=== PATIENT | female | born 2000 | race African-American/Black ===

== ENCOUNTER 2024-03-01 18:09 | Emergency (ER) | payer OTHER ==
[2024-03-01 19:00] LABS: Absolute Basophils 0.1 K/uL (0-0.5); Absolute Lymphocytes (CBC) 0.4 K/uL (0.7-4.9); Absolute Monocytes 0.1 K/uL (0.1-1.3); Absolute Neutrophil 14.3 K/uL (1.8-8.0); Basophils % 0.4 % (0-1.3); Hematocrit 38.7 % (36.0-45.0); Lymphocytes % 2.5 % (15.3-44.8); MCHC 30.9 g/dL (32.0-36.0); MCV 74.3 fL (80-100); Monocytes % 0.8 % (3.3-12.3); Neutrophils % 96.3 % (41.7-73.7); Platelets 352 thou/uL (152-406); RBC Red Blood Cell Count 5.21 M/uL (3.86-4.86); Red Cell Distribution Width 23.3 % (12.1-15.2)
[2024-03-01 19:01] LABS: White Blood Cell Scan OK (OK)
[2024-03-01 19:02] LABS: Anisocytosis 2+; Blood Morphology Comment NOTED (NOT SEEN); Platelet Estimate ADEQ
[2024-03-01 19:09] LABS: Specific Gravity 1.019 (1.005-1.030)
[2024-03-01 19:11] LABS: Specific Gravity 1.019 (1.005-1.030); Urine Bacteria <20 /HPF (<20); Urine Bilirubin NEGATIVE (Negative); Urine Blood Negative (Negative); Urine Clarity Turbid (Clear); Urine Color Light-Yellow (Yellow); Urine Glucose NEGATIVE (Negative); Urine Ketones 4+ (Over) (Negative); Urine Microscopic Reflex YN ORDER UMIC; Urine Mucus Slight /HPF (None Seen); Urine Nitrite NEGATIVE (Negative); Urine Protein 1+ (Negative); Urine RBC <5 /HPF (None Seen); Urine Urobilinogen Normal (Normal); Urine pH 7.5 (5.0-7.0)
[2024-03-01 19:15] LABS: Urine Culture Reflex Order REFLEXED
[2024-03-01] MEDS ORDERED: METOCLOPRAMIDE 10 MG/2mL INJ ONE ×2 (19:15→23:43)
[2024-03-01] MEDS ORDERED: MORPHINE 4 MG/ML SYR ONE ×2 (19:15→22:25)
[2024-03-01] MEDS ORDERED: NA CHLORIDE 0.9% 1,000 ML ONE (19:15)
[2024-03-01] MEDS ORDERED: NA CHLORIDE 0.9% 50 ML ONE ×2 (19:15→23:43)
[2024-03-01 19:32] LABS: Barbiturates NEGATIVE (NEGATIVE); Benzodiazepines NEGATIVE (NEGATIVE); Cocaine POSITIVE (NEGATIVE); METHAMPHETAM NEGATIVE (NEGATIVE); Methadone NEGATIVE (NEGATIVE); Opiates NEGATIVE (NEGATIVE); Phencyclidine NEGATIVE (NEGATIVE); THC Cannibis POSITIVE (NEGATIVE)
[2024-03-01 19:44] LABS: Albumin 4.6 g/dL (3.4-5.0); Anion Gap 11.8 mEq/L (5.0-15.0); Bilirubin Total 0.3 mg/dL (0.2-1.0); Globulin 4.4 g/dL (2.3-3.5); Potassium 3.8 mEq/L (3.5-5.1)
[2024-03-01] MEDS ORDERED: ONDANSETRON 4 MG/2 ML VIAL ONE ×2 (21:18→22:25)
--- NOTE | 2024-03-01 21:20 | RAD REPORT ---
EXAM DESCRIPTION: CT - Abdomen Pelvis W Contrast - 03/01/2024 9:02 pm CLINICAL HISTORY: Abdominal pain COMPARISON: none. TECHNIQUE: Computed axial tomography of the abdomen pelvis was obtained. 100 cc Isovue-300 was admin istered intravenously. Oral contrast was not requested which limits evaluation of bowel and appendix All CT scans are performed using dose optimization technique as appropriate and may include automated exposure control or mA/KV adjustment according to patient size. FINDINGS: A 6 millimeter low-density lesion right liver. Tiny low-density lesion left lobe of liver. These are too small to characterize by CT criteria but probably are benign. Follow up liver ultrasou nd in 3 months recommended for re-evaluation Spleen, pancreas, adrenals and kidneys unremarkable. No adnexal mass. Trace amount fluid within pelvis. Wall of the transverse colon and portion of the ascending colon appear mildly thickened. IMPRESSION: Wall of the transverse colon and portion of the ascending colon appear mildly thickened. This may indicate a mild colitis or incomplete distention
[2024-03-01] MEDS ORDERED: CIPROFLOXACIN HCL 500 MG TAB ONE (21:51)
[2024-03-01] MEDS ORDERED: METRONIDAZOLE 500mg IVPB 500 MG/100 ML BAG IV ONE (21:51)
--- NOTE | 2024-03-01 22:47 | EDPHYS ---
Physician Documentation [facility] Name: Elizabeth Gillis Age: 23 yrs Sex: Female : 2000 Arrival Date: 03/01/2024 Time: 18:09 Bed 7 Private MD: ED Physician Ramos Petersen HPI: 03/01 18:50 This 23 yrs old Black Female presents to ER via Wheelchair with complaints of Abdominal cp Pain, Nausea/Vomiting. 18:50 The patient presents with abdominal pain right lower quadrant. cp 18:50 Onset: The symptoms/episode began/occurred this afternoon. cp 18:50 Associated signs and symptoms: Pertinent positives: nausea and vomiting since last cp night, diarrhea, Pertinent negatives: blood in stools, constipation, fever, vomiting blood. The symptoms are described as constant. 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 - Infectious Disease History:: Denies. - Social history:: Smoking status: Patient reports the use of cigarette tobacco products, denies chronic smoking, but will smoke occasionally, Patient uses alcohol, occasionally. - Family history:: not pertinent. ROS: 18:55 Constitutional: Positive for poor PO intake, Negative for body aches, chills, fever, cp 18:55 Cardiovascular: Negative for chest pain, edema, palpitations, cp 18:55 Respiratory: Negative for cough, shortness of breath, wheezing, 18:55 Abdomen/GI: Positive for abdominal pain, nausea and vomiting, Negative for diarrhea, constipation, hematemesis, black/tarry stool, rectal bleeding, 18:55 : Negative for urinary symptoms, flank pain, 18:55 Neuro: Negative for altered mental status, dizziness, headache, syncope, 18:55 All other systems are negative, 03/02 02:36 Constitutional: Negative for fever, chills, and weight loss, positive abdominal pain , sp4 positive nausea vomiting All other systems are negative, Exam: 03/01 19:00 Constitutional: The patient appears in no acute distress, alert, awake, non-toxic, well cp developed, well nourished, 19:00 Head/Face: Normocephalic, atraumatic. cp 19:00 Eyes: Periorbital structures: appear normal, Conjunctiva: normal, no exudate, no injection, Sclera: no appreciated abnormality, Lids and lashes: appear normal, bilaterally, 19:00 ENT: External ear(s): are unremarkable, Nose: is normal, Mouth: Lips: moist, Oral mucosa: pink and intact, moist, Posterior pharynx: Airway: no evidence of obstruction, patent, 19:00 Chest/axilla: Inspection: normal, 19:00 Cardiovascular: Rate: normal, Rhythm: regular, 19:00 Respiratory: the patient does not display signs of respiratory distress, Respirations: normal, no use of accessory muscles, no retractions, labored breathing, is not present, Breath sounds: are clear throughout, no decreased breath sounds, no stridor, no wheezing, 19:00 Abdomen/GI: Inspection: abdomen appears normal, Bowel sounds: active, all quadrants, Palpation: soft, in all quadrants, moderate abdominal tenderness, in the right upper quadrant and left upper quadrant, rebound tenderness, is not appreciated, involuntary guarding, is not appreciated, 19:00 Back: pain, is absent, CVA tenderness, is absent, 19:00 Neuro: Orientation: to person, place \T\ time. Mentation: is normal, Motor: moves all fours, strength is normal, Sensation: no obvious gross deficits, Vital Signs: 18:24 Temp 97.2(TE); tm6 18:26 BP 161 / 91; Pulse 66; Resp 19; Pulse Ox 100% on R/A; Weight 63.5 kg; Height 5 ft. 6 tm6 in. ; Pain 8/10; 19:33 BP 146 / 90; Pulse 58; Resp 19; Pulse Ox 100% on R/A; kd3 21:20 BP 117 / 58; Pulse 82; Resp 19; Pulse Ox 100% on R/A; kd3 22:53 BP 144 / 85; Pulse 81; Resp 19; Pulse Ox 99% on R/A; kd3 03/02 00:07 BP 109 / 77; Pulse 84; Resp 19; Pulse Ox 98% on R/A; kd3 03/01 18:26 Body Mass Index 22.60 (63.50 kg, 167.64 cm) tm6 18:26 Pain Scale: Adult tm6 MDM: 03/01 18:25 Patient medically screened. cp 23:19 ED course: EXAM DESCRIPTION: CT - Abdomen Pelvis W Contrast - 03/01/2024 9:02 pm sp4 CLINICAL HISTORY: Abdominal pain COMPARISON: none. TECHNIQUE: Computed axial tomography of the abdomen pelvis was obtained. 100 cc Isovue-300 was administered intravenously. Oral contrast was not requested which limits evaluation of bowel and appendix All CT scans are performed using dose optimization technique as appropriate and may include automated exposure control or mA/KV adjustment according to patient size. FINDINGS: A 6 millimeter low-density lesion right liver. Tiny low-density lesion left lobe of liver. These are too small to characterize by CT criteria but probably are benign. Follow up liver ultrasound in 3 months recommended for re-evaluation Spleen, pancreas, adrenals and kidneys unremarkable. No adnexal mass. Trace amount fluid within pelvis. Wall of the transverse colon and portion of the ascending colon appear mildly thickened. IMPRESSION: Wall of the transverse colon and portion of the ascending colon appear mildly thickened. This may indicate a mild colitis or incomplete distention. 03/02 02:36 Differential diagnosis: Nonspecific abd pain, gastritis, viral gastroenteritis, sp4 gastroenteritis. Data reviewed: vital signs, nurses notes, lab test result(s), radiologic studies, CT scan. Consideration of Admission/Observation Escalation of care including admission/observation considered. 03/01 18:47 Order name: CBC with Diff; Complete Time: 19:57 cp 03/01 22:07 Interpretation: Normal except: WBC 14.90; RBC 5.21; MCV 74.3; MCH 23.0; MCHC 30.9; RDW cp 23.3; LEA% 96.3; LYM% 2.5; MN% 0.8; NEUT A 14.3; LYMA 0.4. 03/01 18:47 Order name: CMP; Complete Time: 19:57 cp 03/01 22:07 Interpretation: Normal except: GLUC 117; BUN 4; TP 9.0; GLOB 4.4; A/G 1.0. cp 03/01 18:47 Order name: Lipase; Complete Time: 19:57 cp 03/01 18:47 Order name: Test, Urine; Complete Time: 19:57 cp 03/01 18:47 Order name: Urinalysis w/ reflexes; Complete Time: 19:57 cp 03/01 22:08 Interpretation: Normal except: [facility] Turbid; UKET 4+ (Over); UPH 7.5; UPROT 1+; UESTR cp 250; UWBC 10-20. 03/01 19:02 Order name: UDS; Complete Time: 19:57 cp 03/01 19:57 Interpretation: Normal except: JYOTI POSITIVE; THC POSITIVE. 03/01 19:02 Order name: CBC Smear Scan; Complete Time: 19:57 EDMS 03/01 19:18 Order name: Urine Culture EDNJ 03/01 19:58 Order name: CT Abd/Pelvis - IV Contrast Only 03/01 18:47 Order name: IV Saline Lock; Complete Time: 18:47 cp 03/01 18:47 Order name: Labs collected and sent; Complete Time: 18:47 cp 03/01 21:40 Order name: PO challenge; Complete Time: 21:59 cp Administered Medications: 03/01 19:25 Drug: morphine IVP or IV 4 mg IVP once over 4 mins Route: IVP; Infused Over: 4 mins; [facility] Site: right antecubital; 19:25 Drug: metoCLOPramide IVP 10 mg IVP once; over 1 to 2 minutes Route: IVP; Site: right [facility] antecubital; 19:25 Drug: NS 0.9% IV 1000 ml IV at 1 bolus Per protocol Route: IV; Rate: 1 bolus; Site: [facility] right antecubital; 21:20 Drug: Ondansetron IVP 4 mg IVP once; over 2 minutes Route: IVP; Site: right antecubital;[facility] 03/02 00:09 Follow up: Response: No adverse reaction; Nausea is decreased [facility] 03/01 21:57 Drug: Ciprofloxacin PO 500 mg PO once Route: PO; jb4 03/02 00:09 Follow up: Response: No adverse reaction [facility] 03/01 21:58 Drug: metroNIDAZOLE IVPB 500 mg 100 ml IVPB once over 30 mins Volume: 100 ml; Route: jb4 IVPB; Infused Over: 30 mins; Site: right antecubital; 22:33 Drug: Ondansetron IVP 4 mg IVP once; over 2 minutes Route: IVP; Site: right antecubital;3 03/02 00:08 Follow up: Response: No adverse reaction kd3 03/01 22:33 Drug: morphine IVP or IV 4 mg IVP once over 4 mins Route: IVP; Infused Over: 4 mins; kd3 Site: right antecubital; 03/02 00:08 Follow up: Response: No adverse reaction; Pain is decreased kd3 03/01 23:46 Drug: metoCLOPramide IVP 10 mg IVP once; over 1 to 2 minutes Route: IVP; Site: right kd3 antecubital; 03/02 00:08 Follow up: Response: No adverse reaction; Nausea is decreased kd3 03/01 23:59 Drug: Promethazine PO 25 mg PO once Route: PO; kd3 03/02 00:08 Follow up: Response: No adverse reaction; Nausea is decreased kd3 Disposition: 02:36 Co-signature as Attending Physician, Ramos Petersen MD I agree with the assessment sp4 and plan of care. I reviewed the patient's care provided by Advanced Practice Provider \T\ agree w/ the diagnosis \T\ care plan. I personally saw the pt \T\ performed a substantive portion of the visit, incldng all aspects of the (History/Exam/Medical Decision Making). Disposition Summary: 03/01/24 22:47 Discharge Ordered Notes: Location: Home cp Problem: new cp Symptoms: have improved cp Condition: Stable cp Diagnosis - Indeterminate colitis cp - Nausea with vomiting, unspecified cp - Cocaine use, unspecified, uncomplicated cp Followup: cp - With: Doyle Dowell MD - When: 2 - 3 days - Reason: Recheck today's complaints Discharge Instructions: - Discharge Summary Sheet cp - Cocaine Use Disorder cp - Nausea and Vomiting, Adult cp - Colitis cp Forms: - Medication Reconciliation Form cp - Antibiotic Education cp - Prescription Opioid Use cp - Patient Portal Instructions cp - Leadership Thank You Letter cp Prescriptions: - scopolamine base 1 mg over 3 days Transdermal patch,transdermal 3 day - apply 1 patch TRANSDERMAL route every 72 hours As needed as needed for nausea cp and vomiting; 3 patch; Refills: 0, Product Selection Permitted - Cipro 500 mg Oral tablet - take 1 tablet ORAL route every 12 hours for 10 days; 20 tablet; Refills: 0, cp Product Selection Permitted - Metronidazole 500 mg Oral Tablet - take 1 tablet ORAL route every 8 hours; 30 tablet; Refills: 0, Product cp Selection Permitted - promethazine 25 mg Oral Tablet - take 1 tablet ORAL route every 6 hours As needed; 20 tablet; Refills: 0, cp Product Selection Permitted Signatures: Dispatcher [employer] EDMS Madhu Gimenez PA PA cp Bryson, James, RN RN jb4 Nisreen Pitts RN RN kd3 Ramos Petersen MD MD sp4 [place] Mccray RN RN tm6 Corrections: (The following items were deleted from the chart) 03/01 22:07 21:38 Normal except: WBC 14.90; RBC 5.21; MCV 74.3; MCH 23.0; MCHC 30.9; RDW 23.3; LEA% cp 96.3; LYM% 2.5; MN% 0.8; NEUT A 14.3. cp 03/02 23:41 02:35 A 23-year-old female presents with abdominal pain. sp4 cp 23:42 02:35 A 23-year-old female presents with abdominal pain. cp cp 23:42 02:36 Constitutional: This is a well developed, well nourished patient who is awake, cp alert, and in no acute distress. Head/Face: Normocephalic, atraumatic. Eyes: Pupils equal round and reactive to light, extra-ocular motions intact. Lids and lashes normal. Conjunctiva and sclera are not injected. Cornea within normal limits. Periorbital areas with no swelling, redness, or edema. ENT: Nares patent. No nasal discharge, no septal abnormalities noted. Tympanic membranes are normal and external auditory canals are clear. Oropharynx with no redness, swelling, or masses, exudates, or evidence of obstruction, uvula midline. Mucous membranes moist. Neck: Trachea midline, no thyromegaly or masses palpated, and no cervical lymphadenopathy. Supple, full range of motion without nuchal rigidity, or vertebral point tenderness. Chest/axilla: Normal chest wall appearance and motion. Nontender with no deformity. No lesions are appreciated. Cardiovascular: Regular rate and rhythm with a normal S1 and S2. No gallops, murmurs, or rubs. Normal PMI, no JVD. No pulse deficits. Respiratory: Lungs have equal breath sounds bilaterally, clear to auscultation and percussion. No rales, rhonchi or wheezes noted. No increased work of breathing, no retractions or nasal flaring. Abdomen/GI: Soft, with normal bowel sounds. No distension or tympany. No guarding or rebound. No evidence of tenderness throughout. Back: No spinal tenderness. No costovertebral tenderness. Skin: Warm, dry with normal turgor. Normal color with no rashes, no lesions, and no evidence of cellulitis. MS/ Extremity: Pulses equal, no cyanosis. Neurovascular intact. Full, normal range of motion. Neuro: Awake and alert, GCS 15, oriented to person, place, time, and situation. Cranial nerves II-XII grossly intact. Motor strength 5/5 in all extremities. Sensory grossly intact. Psych: Awake, alert, with orientation to person, place and time. Behavior, mood, and affect are within normal limits sp4 23:42 02:36 GCS: 15, sp4 cp
--- NOTE | 2024-03-01 22:47 | ER ---
Nurse's Notes [facility] Name: Elizabeth Gillis Age: 23 yrs Sex: Female : 2000 Arrival Date: 03/01/2024 Time: 18:09 Bed 7 Private MD: Diagnosis: Indeterminate colitis;Nausea with vomiting, unspecified;Cocaine use, unspecified, uncomplicated Presentation: 03/01 18:24 Chief complaint: Patient states: n/v since last night, has not been able to stop. tm6 Stomach pain since this afternoon. Coronavirus screen: Vaccine status: Patient reports receiving the 2nd dose of the covid vaccine. Ebola Screen: Patient negative for fever greater than or equal to 101.5 degrees Fahrenheit, and additional compatible Ebola Virus Disease symptoms Patient denies exposure to infectious person. Patient denies travel to an Ebola-affected area in the 21 days before illness onset. No symptoms or risks identified at this time. Initial Sepsis Screen: Does the patient meet any 2 criteria? No. Patient's initial sepsis screen is negative. Does the patient have a suspected source of infection? No. Patient's initial sepsis screen is negative. Risk Assessment: Do you want to hurt yourself or someone else? Patient reports no desire to harm self or others. Onset of symptoms was February 29, 2024. 18:24 Method Of Arrival: Wheelchair tm6 18:24 Acuity: LEX 3 tm6 Triage Assessment: 18:26 General: Appears uncomfortable, Behavior is calm, cooperative. Pain: Complains of pain tm6 in abdomen Pain does not radiate. Pain currently is 8 out of 10 on a pain scale. EENT: No signs and/or symptoms were reported regarding the EENT system. Neuro: Level of Consciousness is awake, alert, obeys commands, Oriented to person, place, time, situation. Cardiovascular: Patient's skin is warm and dry. Respiratory: Airway is patent Respiratory effort is even, unlabored, Respiratory pattern is regular, symmetrical. GI: Abdomen is flat, non-distended, Reports lower abdominal pain, upper abdominal pain, nausea, vomiting. : No signs and/or symptoms were reported regarding the genitourinary system. Derm: No signs and/or symptoms reported regarding the dermatologic system. Musculoskeletal: No signs and/or symptoms reported regarding the musculoskeletal system. 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 - Infectious Disease History:: Denies. - Social history:: Smoking status: Patient reports the use of cigarette tobacco products, denies chronic smoking, but will smoke occasionally, Patient uses alcohol, occasionally. - Family history:: not pertinent. Screenin:26 [facility] ED Fall Risk Assessment (Adult) History of falling in the last 3 months, aa5 including since admission No falls in past 3 months (0 pts) Confusion or Disorientation No (0 pts) Intoxicated or Sedated No (0 pts) Impaired Gait No (0 pts) Mobility Assist Device Used No (0 pt) Altered Elimination No (0 pt) Score/Fall Risk Level 0 - 2 = Low Risk Oriented to surroundings, Maintained a safe environment, Educated pt \T\ family on fall prevention, incl call for assistance when getting out of bed. Abuse screen: Denies threats or abuse. Nutritional screening: No deficits noted. Tuberculosis screening: No symptoms or risk factors identified. Assessment: 18:26 General: Appears uncomfortable, Behavior is calm, cooperative. Pain: Complains of pain aa5 in right lower quadrant Pain currently is 8 out of 10 on a pain scale. Quality of pain is described as sharp, Is continuous. Neuro: Level of Consciousness is awake, alert, obeys commands, Oriented to person, place, time, situation. Cardiovascular: Patient's skin is warm and dry. Respiratory: Airway is patent Respiratory effort is even, unlabored, Respiratory pattern is regular, symmetrical. GI: Abdomen is non-distended, Bowel sounds present X 4 quads. Abdomen is tender to palpation in right lower quadrant Reports nausea, vomiting. : No signs and/or symptoms were reported regarding the genitourinary system. EENT: No signs and/or symptoms were reported regarding the EENT system. Derm: Skin is dry, Skin is normal, Skin temperature is warm. Musculoskeletal: Range of motion: intact in all extremities. 19:32 General: Appears uncomfortable, Behavior is calm, cooperative. Pain: Complains of pain kd3 in right lower quadrant and abdomen. Neuro: Level of Consciousness is awake, alert, obeys commands, Oriented to person, place, time, situation. Cardiovascular: Patient's skin is warm and dry. Respiratory: Airway is patent Trachea midline Respiratory effort is even, unlabored, Respiratory pattern is regular, symmetrical. GI: Pt is actively vomiting bile. 22:51 General: Pt is questioning Plan of care and would like to know why she is being kd3 discharged. This RN offered to have the provider come back into the room and re-discuss with the pt reasoning behind discharge, PT declined speaking to the provider again. . 22:55 General: Pt requesting to speak with attending physician. Provider notified. . kd3 23:52 General: PT is satisfied after speaking to the provider. All questions are answered. Pt kd3 is being administered medications and will D/C home. . Vital Signs: 18:24 Temp 97.2(TE); tm6 18:26 BP 161 / 91; Pulse 66; Resp 19; Pulse Ox 100% on R/A; Weight 63.5 kg; Height 5 ft. 6 tm6 in. ; Pain 8/10; 19:33 BP 146 / 90; Pulse 58; Resp 19; Pulse Ox 100% on R/A; kd3 21:20 BP 117 / 58; Pulse 82; Resp 19; Pulse Ox 100% on R/A; kd3 22:53 BP 144 / 85; Pulse 81; Resp 19; Pulse Ox 99% on R/A; kd3 08 00:07 BP 109 / 77; Pulse 84; Resp 19; Pulse Ox 98% on R/A; kd3 03/01 18:26 Body Mass Index 22.60 (63.50 kg, 167.64 cm) tm6 18:26 Pain Scale: Adult tm6 ED Course: 03/01 18:12 Patient arrived in ED. mr 18:25 Madhu Gimenez PA is PHCP. cp 18:25 Saeid Chavez MD is Attending Physician. cp 18:25 Triage completed. tm6 18:26 Arm band placed on right wrist. tm6 18:26 Patient has correct armband on for positive identification. Bed in low position. Call aa5 light in reach. Side rails up X 1. 18:38 Vashti Johansen, RN is Primary Nurse. aa5 18:38 Initial lab(s) drawn, by me, sent to lab. Inserted saline lock: 22 gauge antecubital aa5 area, using aseptic technique. Blood collected. Flushed with 10 mL NS. 19:00 Report given to TRISTAN Nielson and TRISTAN Pastor. aa5 21:03 CT Abd/Pelvis - IV Contrast Only In Process Unspecified. EDMS 22:46 Doyle Dowell MD is Referral Physician. cp 22:52 No provider procedures requiring assistance completed. kd3 23:18 Attending Physician role handed off by Saeid Chavez MD sp4 23:18 Ramos Petersen MD is Attending Physician. sp4 03/02 00:07 Provided Education on: medications . kd3 00:07 IV discontinued, intact, bleeding controlled, No redness/swelling at site. Pressure kd3 dressing applied. Administered Medications: 03/01 19:25 Drug: morphine IVP or IV 4 mg IVP once over 4 mins Route: IVP; Infused Over: 4 mins; kd3 Site: right antecubital; 19:25 Drug: metoCLOPramide IVP 10 mg IVP once; over 1 to 2 minutes Route: IVP; Site: right 3 antecubital; 19:25 Drug: NS 0.9% IV 1000 ml IV at 1 bolus Per protocol Route: IV; Rate: 1 bolus; Site: 3 right antecubital; 21:20 Drug: Ondansetron IVP 4 mg IVP once; over 2 minutes Route: IVP; Site: right antecubital;kd3 03/02 00:09 Follow up: Response: No adverse reaction; Nausea is decreased 3 03/01 21:57 Drug: Ciprofloxacin PO 500 mg PO once Route: PO; jb4 03/02 00:09 Follow up: Response: No adverse reaction 3 03/01 21:58 Drug: metroNIDAZOLE IVPB 500 mg 100 ml IVPB once over 30 mins Volume: 100 ml; Route: jb4 IVPB; Infused Over: 30 mins; Site: right antecubital; 22:33 Drug: Ondansetron IVP 4 mg IVP once; over 2 minutes Route: IVP; Site: right antecubital;kd3 03/02 00:08 Follow up: Response: No adverse reaction 3 03/01 22:33 Drug: morphine IVP or IV 4 mg IVP once over 4 mins Route: IVP; Infused Over: 4 mins; kd3 Site: right antecubital; 03/02 00:08 Follow up: Response: No adverse reaction; Pain is decreased kd3 03/01 23:46 Drug: metoCLOPramide IVP 10 mg IVP once; over 1 to 2 minutes Route: IVP; Site: right kd3 antecubital; 03/02 00:08 Follow up: Response: No adverse reaction; Nausea is decreased kd3 03/01 23:59 Drug: Promethazine PO 25 mg PO once Route: PO; kd3 03/02 00:08 Follow up: Response: No adverse reaction; Nausea is decreased kd3 Medication: 03/01 18:26 VIS not applicable for this client. aa5 Outcome: 22:47 Discharge ordered by . celine 03/02 00:07 Discharged to home ambulatory, kd3 Condition: stable Discharge instructions given to patient, Instructed on discharge instructions, follow up and referral plans. medication usage, Demonstrated understanding of instructions, follow-up care, medications, Prescriptions given X 5 00:09 Patient left the ED. kd3 Signatures: Dispatcher [employer] EDMS Chante Fernandez, Reg Reg mr JohansenVashti RN RN aa5 Madhu Gimenez PA PA cp Nico Davis RN RN jb4 Nisreen Pitts RN RN kd3 Ramos Petersen MD MD sp4 [place] Mccray RN RN tm6 Corrections: (The following items were deleted from the chart) 03/01 19:19 19:00 Report given to TRISTAN Nielson and TRISTAN Stiles aa5 aa5
[2024-03-01] MEDS ORDERED: PROMETHAZINE 25 MG TABLET ONE (23:42)
[2024-03-02 01:01] VITALS: TEMP 97.2
[2024-03-02 01:08] VITALS: BP 109/77; O2SAT 98
== END 2024-03-02 00:09 | disposition home or self-care (01) ==
LOC: ER 18:09
DX: K52.3 Indeterminate colitis (principal); F14.90 Cocaine use, unspecified, uncomplicated; F17.210 Nicotine dependence, cigarettes, uncomplicated
CPT/HCPCS: 87088; 85025; 81001; 87086; 36415; 81025; 83690; 80053; 80307; 74177; 96375; 96374; 99284; Q9967; Q0169; J2765 ×2; J2405 ×2; J7030

== ENCOUNTER 2024-03-02 15:30 | Observation (INO) | payer OTHER ==
[2024-03-02] MEDS ORDERED: KETOROLAC 30 MG/ML INJ ONE (16:54)
[2024-03-02] MEDS ORDERED: DIPHENHYDRAMINE 50 MG/ML VIAL ONE (16:55)
[2024-03-02] MEDS ORDERED: NA CHLORIDE 0.9% 1,000 ML ONE (16:55)
[2024-03-02] MEDS ORDERED: FAMOTIDINE 20 MG/2 ML VIAL IV ONE (16:55)
[2024-03-02 17:30] LABS: Absolute Eosinophils 5.5 K/uL (0-0.5); Absolute Lymphocytes (CBC) 1.1 K/uL (0.7-4.9); Absolute Monocytes 0.1 K/uL (0.1-1.3); Absolute Neutrophil 6.8 K/uL (1.8-8.0); Eosinophils % 40.5 % (0-4.4); Hematocrit 39.8 % (36.0-45.0); Hemoglobin 12.5 g/dL (12.0-15.0); Lymphocytes % 8.1 % (15.3-44.8); MCH 23.1 pg (27.0-35.0); MCHC 31.3 g/dL (32.0-36.0); MCV 73.8 fL (80-100); MPV 8.3 fL (7.6-11.3); Monocytes % 0.7 % (3.3-12.3); Neutrophils % 50.7 % (41.7-73.7); Nucleated Red Blood Cells % 0.1 % (0-0); Platelets 349 thou/uL (152-406); Red Cell Distribution Width 23.4 % (12.1-15.2)
[2024-03-02 17:46] LABS: Albumin 4.3 g/dL (3.4-5.0); Anion Gap 11.3 mEq/L (5.0-15.0); Bilirubin Total 0.5 mg/dL (0.2-1.0); Globulin 4.3 g/dL (2.3-3.5); Protein, Total 8.6 g/dL (6.4-8.2)
[2024-03-02 17:49] LABS: Potassium 4.3 mEq/L (3.5-5.1)
[2024-03-02 18:57] LABS: Differential Total Cells Count 100; Lymphocytes 4 % (15-42); Monocytes 3 % (0-10); Segmented Neutrophils 93 % (40-80)
--- NOTE | 2024-03-02 18:59 | ER ---
Nurse's Notes [facility] Name: Elizabeth Gillis Age: 23 yrs Sex: Female : 2000 Arrival Date: 03/02/2024 Time: 15:30 Bed 20 Private MD: Diagnosis: Nausea with vomiting, unspecified;Intractable Nausea and vomiting Presentation: 03/02 16:02 Chief complaint: Patient states: ABD PAIN AND N/V. BLOOD WITH VOMIT. SEEN HERE FOR db SYMPTOMS NOT FEELING BETTER SO RETURNED. SEEN YESTERDAY FOR CYCLICAL N/V. 16:02 Coronavirus screen: Client denies travel out of the [place] in the last 14 days. At this db time, the client does not indicate any symptoms associated with coronavirus-19. Onset of symptoms was March 02, 2024. 16:02 Method Of Arrival: Wheelchair db 16:05 Ebola Screen: Patient negative for fever greater than or equal to 101.5 degrees db Fahrenheit, and additional compatible Ebola Virus Disease symptoms Patient denies exposure to infectious person. Patient denies travel to an Ebola-affected area in the 21 days before illness onset. No symptoms or risks identified at this time. Initial Sepsis Screen: Does the patient meet any 2 criteria? No. Patient's initial sepsis screen is negative. Does the patient have a suspected source of infection? No. Patient's initial sepsis screen is negative. Risk Assessment: Do you want to hurt yourself or someone else? Patient reports no desire to harm self or others. 16:05 Acuity: LEX 3 db Triage Assessment: 16:05 General: Appears in no apparent distress. uncomfortable, Behavior is calm, cooperative. db Pain: Complains of pain in abdomen. Neuro: Level of Consciousness is awake, alert, obeys commands, Oriented to person, place, time, situation. Respiratory: Airway is patent Respiratory effort is even, unlabored, Respiratory pattern is regular, symmetrical. GI: Abdomen is flat, non-distended, Reports lower abdominal pain, nausea, vomiting. 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 - Infectious Disease History:: Denies. - Social history:: Smoking status: . Screenin:27 [facility] ED Fall Risk Assessment (Adult) History of falling in the last 3 months, tm6 including since admission No falls in past 3 months (0 pts) Confusion or Disorientation No (0 pts) Intoxicated or Sedated No (0 pts) Impaired Gait No (0 pts) Mobility Assist Device Used No (0 pt) Altered Elimination No (0 pt) Score/Fall Risk Level 0 - 2 = Low Risk Oriented to surroundings, Maintained a safe environment, Educated pt \T\ family on fall prevention, incl call for assistance when getting out of bed. Abuse screen: Denies threats or abuse. Denies injuries from another. Nutritional screening: No deficits noted. Tuberculosis screening: No symptoms or risk factors identified. Assessment: 17:27 General: Appears in no apparent distress. Behavior is calm, cooperative. Pain: tm6 Complains of pain in abdomen Pain currently is 8 out of 10 on a pain scale. Neuro: Level of Consciousness is awake, alert, obeys commands, Oriented to person, place, time, situation. Cardiovascular: No deficits noted. Patient's skin is warm and dry. Respiratory: Airway is patent Respiratory effort is even, unlabored, Respiratory pattern is regular, symmetrical. GI: Bowel sounds present X 4 quads. Abd is soft and non tender X 4 quads. Reports lower abdominal pain, upper abdominal pain, nausea, vomiting. : No signs and/or symptoms were reported regarding the genitourinary system. EENT: No signs and/or symptoms were reported regarding the EENT system. Derm: No signs and/or symptoms reported regarding the dermatologic system. Musculoskeletal: No signs and/or symptoms reported regarding the musculoskeletal system. 19:15 General: Appears in no apparent distress. Behavior is calm, cooperative. rg5 19:15 Pain: Complains of pain in abdomen. Neuro: Level of Consciousness is awake, alert, rg5 obeys commands, Oriented to person, place, time. Cardiovascular: Patient's skin is warm and dry. Respiratory: Airway is patent Respiratory effort is even, unlabored, Respiratory pattern is regular, symmetrical. GI: Reports upper abdominal pain. : No signs and/or symptoms were reported regarding the genitourinary system. EENT: No deficits noted. Derm: No signs and/or symptoms reported regarding the dermatologic system. Musculoskeletal: Range of motion: intact in all extremities. 20:30 Reassessment: Patient and/or family updated on plan of care and expected duration. Pain rg5 level reassessed. Patient is alert, oriented x 3, equal unlabored respirations, skin warm/dry/pink. Patient states symptoms have improved. Vital Signs: 16:05 BP 140 / 112; Pulse 63; Resp 16; Temp 99.3(O); Pulse Ox 96% ; db 19:15 BP 121 / 77; Pulse 78; Resp 17; Temp 98; Pulse Ox 100% on R/A; Pain 0/10; rg5 19:15 Pain Scale: Adult rg5 [place] Coma Score: 19:15 Eye Response: spontaneous(4). Motor Response: obeys commands(6). Verbal Response: rg5 oriented(5). Total: 15. ED Course: 15:31 Patient arrived in ED. ec2 15:31 Jose Luis Brown MD is Attending Physician. ec2 16:06 Triage completed. db 16:06 Arm band placed on Patient placed in waiting room. db 16:50 [place] Mccray, TRISTAN is Primary Nurse. tm6 17:27 Patient has correct armband on for positive identification. Bed in low position. Call tm6 light in reach. Side rails up X2. Provided Education on: use of call miller. Client placed on continuous cardiac and pulse oximetry monitoring. NIBP monitoring applied. Pulse ox on. NIBP on. Door closed. Noise minimized. Warm blanket given. Pillow given. 17:27 Missed attempt(s): 22 gauge in left antecubital area. Bleeding controlled, band aid tm6 applied, catheter tip intact. 17:28 Missed attempt(s): 22 gauge in right antecubital area. Bleeding controlled, band aid tm6 applied, catheter tip intact. 17:30 CBC with Diff Sent. tm6 17:30 CMP Sent. tm6 17:30 Lipase Sent. tm6 17:53 Inserted saline lock: 24 gauge in left hand, using aseptic technique. Flushed with 10 zm mL NS. 18:59 Otoniel Rain MD is Hospitalizing Provider. ec2 19:15 Resting quietly. Appears to be sleeping. rg5 19:15 Door closed. Noise minimized. Warm blanket given. rg5 19:30 No provider procedures requiring assistance completed. rg5 21:00 Patient admitted, IV remains in place. rg5 Administered Medications: 17:57 Drug: Droperidol IVP 2.5 mg IVP once Route: IVP; Site: left hand; tm6 17:57 Drug: diphenhydrAMINE IVP 50 mg IVP once Route: IVP; Site: left hand; tm6 17:57 Drug: Ketorolac IVP 15 mg IVP once Route: IVP; Site: left hand; tm6 17:58 Drug: NS 0.9% IV 1000 ml IV at 1 bolus Per protocol; 1000 mL bolus Route: IV; Rate: 1 tm6 bolus; Site: left hand; 17:58 Drug: Famotidine IVP 20 mg IVP once; dilute with 10 mL 0.9% NaCl; give over 2 minutes tm6 Route: IVP; Site: left hand; Medication: 17:27 VIS not applicable for this client. tm6 Outcome: 18:59 Decision to Hospitalize by Provider. ec2 19:30 Admitted to Med/surg rg5 21:00 Condition: stable rg5 Signatures: Kacy Jaquez Danielle, RN RN Jose Luis Brown MD MD 2 [place] Mccray RN RN 6 Efrain Archuleta RN RN 5 Corrections: (The following items were deleted from the chart) 16:05 16:02 Chief complaint: Patient states: ABD PAIN AND N/V. BLOOD WITH VOMIT. SEEN HERE db FOR SYMPTOMS NOT FEELING BETTER SO RETURNED db 03/03 05:32 08 21:20 Patient left the ED. 5 5 03/03 05:32 05:28 Eloped Time discovered patient gone: March 02, 2024 at 21:10 [place] [id number] 05:32 05:28 unknown [place] [id number]
--- NOTE | 2024-03-02 19:00 | EDPHYS ---
Physician Documentation [facility] Name: Elizabeth Gillis Age: 23 yrs Sex: Female : 2000 Arrival Date: 03/02/2024 Time: 15:30 Bed 20 Private MD: ED Physician Jose Luis Brown HPI: 03/02 16:07 This 23 yrs old Black Female presents to ER via Wheelchair with complaints of Abdominal ec2 Pain, Nausea/Vomiting. 16:07 Patient arrives today for generalized abdominal pain along with nausea and vomiting. ec2 History of IBS. Patient was seen yesterday. She under chart review shows the patient had undergone a CAT scan that showed colitis.. 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 - Infectious Disease History:: Denies. - Social history:: Smoking status: . ROS: 16:07 Constitutional: as per hpi ec2 Exam: 16:09 Constitutional: GEN: NAD Head: atraumatic Eyes: EOMI Ears: External ears are ec2 normal. CV: regular rate LUNGS: no respiratory distress ABD: non-distended SKIN: no evidence of rashes MSK: no evidence of trauma Vital Signs: 16:05 BP 140 / 112; Pulse 63; Resp 16; Temp 99.3(O); Pulse Ox 96% ; db 19:15 BP 121 / 77; Pulse 78; Resp 17; Temp 98; Pulse Ox 100% on R/A; Pain 0/10; rg5 19:15 Pain Scale: Adult rg5 [place] Coma Score: 19:15 Eye Response: spontaneous(4). Motor Response: obeys commands(6). Verbal Response: rg5 oriented(5). Total: 15. MDM: 16:02 Patient medically screened. ec2 16:09 Data reviewed: vital signs. ED course: Patient arrives today for evaluation of ec2 generalized abdominal pain. Examination reassuring. Will obtain repeat lab work and treat the patient symptoms. . 18:06 ED course: CBC shows reassuring blood counts, slight leukocytosis noted. Metabolic ec2 profile with slight hyperkalemia with hemolysis noted, lipase within normal ranges. . 18:55 ED course: On reassessment patient reports persistent nausea, will admit for ec2 intractable nausea given this is patient's second visit in the ED in the past 2 days. Do not feel she would benefit from repeat imaging at this time, additionally patient does not require emergent/urgent GI evaluation. 18:58 ED course: Discussed case with hospitalist who is agreeable to admission. ec2 03/02 16:07 Order name: CBC with Diff ec2 03/02 16:07 Order name: CMP; Complete Time: 18:06 ec2 03/02 16:07 Order name: Lipase; Complete Time: 18:06 ec2 03/02 18:57 Order name: Manual Differential EDMS 03/02 19:20 Order name: CBC with Automated Diff EDMS 03/02 19:20 Order name: CBC with Automated Diff EDMS 03/02 19:20 Order name: Comprehensive Metabolic Panel EDMS 03/02 19:20 Order name: Comprehensive Metabolic Panel EDMS 03/02 16:07 Order name: IV Saline Lock; Complete Time: 17:54 ec2 03/02 16:07 Order name: Labs collected and sent; Complete Time: 17:30 ec2 03/02 17:16 Order name: PO challenge; Complete Time: 19:00 ec2 03/02 18:14 Order name: PO challenge; Complete Time: 19:00 ec2 Administered Medications: 17:57 Drug: Droperidol IVP 2.5 mg IVP once Route: IVP; Site: left hand; tm6 17:57 Drug: diphenhydrAMINE IVP 50 mg IVP once Route: IVP; Site: left hand; tm6 17:57 Drug: Ketorolac IVP 15 mg IVP once Route: IVP; Site: left hand; tm6 17:58 Drug: NS 0.9% IV 1000 ml IV at 1 bolus Per protocol; 1000 mL bolus Route: IV; Rate: 1 tm6 bolus; Site: left hand; 17:58 Drug: Famotidine IVP 20 mg IVP once; dilute with 10 mL 0.9% NaCl; give over 2 minutes tm6 Route: IVP; Site: left hand; Disposition Summary: 03/02/24 18:59 Hospitalization Ordered Notes: Hospitalization Status: Inpatient Admission ec2 Provider: Otoniel Rain Location: Telemetry/MedSurg (Inpatient) ec2 Condition: Stable ec2 Problem: an ongoing problem ec2 Symptoms: have improved ec2 Bed/Room Type: Standard ec2 Room Assignment: 407(03/02/24 19:29) rv1 Diagnosis - Nausea with vomiting, unspecified ec2 - Intractable Nausea and vomiting ec2 Forms: - Medication Reconciliation Form ec2 - SBAR form ec2 - Leadership Thank You Letter ec2 Signatures: Dispatcher [employer] EDMS Whit John, RN RN Cindy Albert rv1 Jose Luis Brown MD MD ec2 [place] Mccray RN RN tm6 Corrections: (The following items were deleted from the chart) 16:08 16:08 CBC+H.LAB.BRZ ordered. EDMS EDMS 16:08 16:08 COMPREHENSIVE METABOLIC PANEL+C.LAB.BRZ ordered. EDMS EDMS 16:08 16:08 LIPASE+C.LAB.BRZ ordered. EDMS EDMS 18:57 17:33 CBC Smear Scan ordered. EDMS EDMS 19:29 18:59 ec2 rv1
[2024-03-02 19:03] LABS: Anisocytosis 2+; Blood Morphology Comment NOTED (NOT SEEN); Platelet Estimate ADEQ
[2024-03-02] MEDS ORDERED: HYDRALAZINE HCL 20 MG/ML VIAL IV PRN (19:17)
--- NOTE | 2024-03-02 20:14 | P.HP ---
Certification for Inpatient Patient admitted to: Observation With expected LOS: <2 Midnights Patient will require the following post-hospital care: None Practitioner: I am a practitioner with admitting privileges, knowledge of patient current condition, hospital course, and medical plan of care. Services: Services provided to patient in accordance with Admission requirements found in Title 42 Section 412.3 of the Code of Federal Regulations Patient History Date of Service: 03/02/24 Reason for admission: Intractable nausea and vomiting History of Present Illness: 23-year-old female with past medical history of IBS, recent preeclampsia with persistent hypertension postdelivery 6 months ago, not on any medication, presented to the ED because of intractable nausea and vomiting. Patient developed nausea and vomiting with abdominal pain since the last 3 days. Abdominal pain is crampy, no associated diarrhea. She presented to the ED yesterday and CT scan of the abdomen shows evidence of inflammation and thickening of the wall of the transverse as well as ascending colon consistent with colitis. Patient was sent home on p.o. antibiotics and antiemetics. She presented again today because of persistent symptoms. She states she was unable to peanut picker the prescribed medication due to persistent vomiting. She has had over 7 episodes today. Vomiting is been nonbloody. She still having significant abdominal crampy pain. Vital signs in the emergency room shows elevated blood pressure in the 140s over 115 with repeat of 187/117. Repeat laboratory workup shows WBC of 13.5 although normal neutrophil percentage. BMP was unremarkable. Lipase was normal. Patient is being admitted for intractable nausea and vomiting in setting of mauricio sverse colitis. - Past Medical/Surgical History -: IBS -: Recent preeclampsia -: None - Family History Family History: Reviewed- Non-Contributory - Social History Smoking Status: Never smoker Smoking therapy provided: No Patient receptive to therapy: No Alcohol use: No CD- Drugs: No Caffeine use: No Place of Residence: Home Physical Examination - Physical Exam General: Alert, In no apparent distress, Oriented x3, Mild distress (Pain distress) HEENT: Atraumatic, Normocephalic, PERRLA Neck: Supple, 2+ carotid pulse no bruit, JVD not distended Respiratory: Clear to auscultation bilaterally, Normal air movement Cardiovascular: No edema, Normal pulses, Regular rate/rhythm, Normal S1 S2 Gastrointestinal: Normal bowel sounds, Non-distended, No ascites, No rebound, No guarding, Tenderness (Generalized with mild palpation) Musculoskeletal: No clubbing, No swelling Integumentary: No rashes, No breakdown, No significant lesion Neurological: Normal speech, Normal strength at 5/5 x4 extr, Sensation intact, Cranial nerves 3-12 intact, Normal reflexes 2+ - Studies Laboratory Data (last 24 hrs) 03/02/24 03/02/24 17:20 17:20 WBC 13.50 H Hgb 12.5 Hct 39.8 Plt Count 349 Sodium 137 Potassium 4.3 D BUN 4 L Creatinine 0.82 Glucose 98 Total Bilirubin 0.5 AST 30 ALT 37 Alkaline Phosphatase 73 Lipase 50 Assessment and Plan - Problems (Diagnosis) (1) Colitis Current Visit: Yes Status: Acute (2) Hypertension Current Visit: Yes Status: Acute - Plan Impression Acute colitis Intractable nausea and vomiting Persistent abdominal pain Hypertensionmay be due to pain induced versus essential hypertension post preeclampsia Plan Will admit patient to observation Pain control with IV morphine as needed Start empirical antibiotics with Flagyl/cefepime Gentle IV fluid with normal saline IV Zofran as needed for nausea and vomiting Follow symptoms with antibiotics and pain control Blood pressure elevated, IV hydralazine as needed Persistent blood pressure after pain control consider start low-dose amlodipine for BP Full code Early ambulation for DVT prophylaxis Possible to stay for less than 24 to 48 hours - Advance Directives Does patient have a Living Will: No Does patient have a Durable POA for Healthcare: No Physician Review: Patient Assessed, Agree with Above Assessment and Plan Time Spent Managing Pts Care (In Minutes): 65
[2024-03-02] MEDS: ONDANSETRON 4 MG/2 ML VIAL IV PRN (20:52)
[2024-03-02] MEDS: NA CHLORIDE 0.9% 1,000 ML IV SCH (20:52)
[2024-03-02] MEDS: MORPHINE 4 MG/ML SYR IV ONE (20:52)
[2024-03-02] MEDS: CEFEPIME 1 GM in NA CHLORIDE 0.9% 100 ML IV SCH (21:00)
[2024-03-02 21:19] VITALS: BMI 21.4
[2024-03-02 21:36] VITALS: O2SAT 96
[2024-03-02] MEDS: FAMOTIDINE 20 MG/2 ML VIAL IV SCH (22:55)
[2024-03-03] MEDS: METRONIDAZOLE 500mg IVPB 500 MG/100 ML BAG IV SCH (00:07)
[2024-03-03] MEDS: METOCLOPRAMIDE 10 MG/2mL INJ IV PRN (02:28)
[2024-03-03] MEDS: MORPHINE 4 MG/ML SYR IV PRN (02:29)
[2024-03-03 06:17] LABS: Absolute Basophils 0.1 K/uL (0-0.5); Absolute Lymphocytes (CBC) 1.5 K/uL (0.7-4.9); Absolute Monocytes 0.6 K/uL (0.1-1.3); Absolute Neutrophil 7.7 K/uL (1.8-8.0); Basophils % 0.6 % (0-1.3); Eosinophils % 0.1 % (0-4.4); Hematocrit 33.4 % (36.0-45.0); Hemoglobin 10.7 g/dL (12.0-15.0); Lymphocytes % 15.5 % (15.3-44.8); MCH 23.7 pg (27.0-35.0); MCHC 32.1 g/dL (32.0-36.0); MCV 73.9 fL (80-100); MPV 8.5 fL (7.6-11.3); Monocytes % 5.8 % (3.3-12.3); Nucleated Red Blood Cells % 0.2 % (0-0); Platelets 291 thou/uL (152-406); RBC Red Blood Cell Count 4.53 M/uL (3.86-4.86); Red Cell Distribution Width 23.2 % (12.1-15.2)
[2024-03-03 06:38] LABS: Albumin 3.5 g/dL (3.4-5.0); Albumin/Globulin Ratio 1.1 (1.1-1.8); Anion Gap 9.4 mEq/L (5.0-15.0); Bilirubin Total 0.4 mg/dL (0.2-1.0); Globulin 3.1 g/dL (2.3-3.5); Potassium 3.4 mEq/L (3.5-5.1); Protein, Total 6.6 g/dL (6.4-8.2)
--- NOTE | 2024-03-03 10:32 | P.PN ---
Date of Service: 03/03/24 Subjective: recent hospitalization at [facility] in [place] abdominal pain n/v secondary to colitis ~december 16 reports she had been doing fine up until yesterday dealing with diarrhea, no obvious bleeding. reports vomiting yesterday after leaving the initial ER visit, noted specks of bright red output at the time. Reports vomiting after admission but no blood noted at least 3/4th of her episodes coincide with her menstrual cycles start per patient. States abnormal, heavy cycles - associated with fatigue, dizziness ROS: 10 point ROS as noted above, otherwise negative Physical Exam: GEN: Alert, oriented, NAD HEENT: Normal conjunctiva, sclera anicteric, CV: Regular rate and rhythm, no edema Pulm: Nonlabored respirations on room air, clear bilaterally ABD: soft, nontender, nondistended Integumentary: No rashes Neuro: Normal speech, normal affect Problem List: Acute colitis; recurrent Hx Irritable bowel syndrome hx stomach ulcer (2019) Polysubstance use Recent preeclampsia Acute colitis; recurrent Hx Irritable bowel syndrome hx stomach ulcer (2019) on admission presents with persistent nausea/vomiting, crampy abdominal pains Was seen day before admission in ER for similar symptoms. sent home with PO antibiotic but hadn't picked up yet d/t constant nausea/vomiting. recent hospitalization at [facility] in [place] abdominal pain n/v secondary to colitis ~December 16 had gastric emptying study and EGD recently which were normal per patient. Was told she should get a colonoscopy to further evaluate. patients half sister has history of crohn's disease and stomach cancer. at least 3/4th of her episodes coincide with her menstrual cycles start per patient. States abnormal, heavy cycles - associated with fatigue, dizziness. Last period [address] abdomen (03/01): wall of transverse colon and portion of the ascending colon appear mildly thickened. Possible Colitis vs incomplete distention. continue empiric cefepime / flagyl for now (03/02-) IV pepcid BID continue IV fluids PRN reglan / zofran pain control Polysubstance use tested positive for cocaine and THC in ER 03/01 last used THC ~1 week ago. Usually smokes once/week. Reports she stopped smoking for 2-3 months a few years ago but her abdominal/colitis flare ups continued during that time cessation advised. Can't definitively r/o Cannabinoid Hyperemesis Syndrome at this time. Recent preeclampsia Monitor BP daily PRN hydralazine On admission presents with Code: Full Dispo: Home Time Spent Managing Pts Care (In Minutes): 41
[2024-03-03 11:49] VITALS: BP 112/73; TEMP 98.8
[2024-03-03] MEDS: CODEINE 30MG/APAP 300MG TAB PO PRN (13:22)
--- NOTE | 2024-03-03 15:12 | P.DS ---
Admission Date: 03/02/24 Discharge Date: 03/03/24 Disposition: ROUTINE DISCHARGE Discharge Condition: GOOD Reason for Admission: Intractable nausea and vomiting Hospital Course: Problem List: Acute colitis Hx Irritable bowel syndrome hx stomach ulcer (2019) Recent preeclampsia Physician discharge instructions: Patient presented with intractable nausea/vomiting, crampy abdominal pains with CT findings of mildly thickened wall of transverse colon and ascending colon, suggestive of acute colitis. She was seen the day before admission in ED for similar symptoms and was sent home with oral antibiotics and antiemetics however hadn't picked up yet d/t constant nausea/vomiting. During this hospitalization she received empiric IV antibiotics, IV fluids, pain medication, and had continued improvement. Patient was feeling better, nausea/vomiting resolved, abdominal pain improved, tolerated full liquid diet, and was deemed stable for discharge. Recommend following up with GI in the near future for further evaluation and consider colonoscopy to further evaluate. Advised to burr picker and complete recent 10 day prescription for ciprofloxacin and flagyl. Patient has a chronic / intermittent history of similar episodes over the last several years. She reports most episodes are associated with the start of menstruation, but may also be triggered by certain foods. She has undergone some workup and reported endometriosis was not suspected, and currently seeing GI, who is planning a colonoscopy in the near future. She has a half-sister with crohn's disease. Her symptoms could be menstrual related GI symptoms / IBS with menstrual exacerbation, IBD, cannabinoid hyperemesis syndrome, or possibly a food allergy/intolerance. Recommended to further discuss with her PCP/GI. Consider longer duration of abstaining from marijuana before ruling out as possibility completely - in parallel to following up with GI and ongoing workup to rule out other causes. NSAIDs/Prostaglandin inhibitors could potentially help if menstrual related, however she reports history of gastric ulcer / GI bleed in the past, for which she should avoid NSAIDs. Medications: New: Tylenol #3 Continue: Prescriptions for ciprofloxacin, flagyl, promethazine, scopolamine were sent from ER visit 03/01. Follow up: PCP 3-5 days GI in near future Please call to schedule / confirm appointments Physical Exam: GEN: Alert, oriented, NAD HEENT: Normal conjunctiva, sclera anicteric CV: Regular rate and rhythm, no edema Pulm: Nonlabored respirations on room air, clear bilaterally ABD: soft, mild tenderness over right abdomen Vital Signs/Physical Exam: Temp Pulse Resp BP Pulse Ox 98.8 F 57 18 112/73 98 03/03/24 11:45 03/03/24 11:45 03/03/24 13:22 03/03/24 11:45 03/03/24 13:22 Laboratory Data at Discharge: WBC 9.80 thou/uL (4.3-10.9) 03/03/24 05:27 Hgb 10.7 g/dL (12.0-15.0) L D 03/03/24 05:27 Hct 33.4 % (36.0-45.0) L 03/03/24 05:27 Plt Count 291 thou/uL (152-406) 03/03/24 05:27 Sodium 139 mEq/L (136-145) 03/03/24 05:27 Potassium 3.4 mEq/L (3.5-5.1) L D 03/03/24 05:27 BUN 5 mg/dL (7-18) L 03/03/24 05:27 Creatinine 0.69 mg/dL (0.55-1.02) 03/03/24 05:27 Glucose 78 mg/dL (74-106) 03/03/24 05:27 Total Bilirubin 0.4 mg/dL (0.2-1.0) 03/03/24 05:27 AST 15 U/L (15-37) 03/03/24 05:27 ALT 29 U/L (13-56) 03/03/24 05:27 Alkaline Phosphatase 58 U/L (45-117) D 03/03/24 05:27 Lipase 50 U/L (13-75) 03/02/24 17:20 Home Medications: Codeine/APAP [Tylenol #3*] 1 tab PO Q6H PRN #10 tab 03/03/24 New Medications: Codeine/APAP [Tylenol #3*] 1 tab PO Q6H PRN #10 tab PRN Reason: Pain Scale 5-7 (Moderate) Physician Discharge Instructions: Physician discharge instructions: Patient presented with intractable nausea/vomiting, crampy abdominal pains with CT findings of mildly thickened wall of transverse colon and ascending colon, suggestive of acute colitis. She was seen the day before admission in ED for similar symptoms and was sent home with oral antibiotics and antiemetics however hadn't picked up yet d/t constant nausea/vomiting. During this hospitalization she received empiric IV antibiotics, IV fluids, pain medication, and had continued improvement. Patient was feeling better, nausea/vomiting resolved, abdominal pain improved, tolerated full liquid diet, and was deemed stable for discharge. Recommend following up with GI in the near future for further evaluation and consider colonoscopy to further evaluate. Advised to burr picker and complete recent 10 day prescription for ciprofloxacin and flagyl. Patient has a chronic / intermittent history of similar episodes over the last several years. She reports most episodes are associated with the start of menstruation, but may also be triggered by certain foods. She has undergone some workup and reported endometriosis was not suspected, and currently seeing GI, who is planning a colonoscopy in the near future. She has a half-sister with crohn's disease. Her symptoms could be menstrual related GI symptoms / IBS with menstrual exacerbation, IBD, cannabinoid hyperemesis syndrome, or possibly a food allergy/intolerance. Recommended to further discuss with her PCP/GI. Consider longer duration of abstaining from marijuana before ruling out as possibility completely - in parallel to following up with GI and ongoing workup to rule out other causes. NSAIDs/Prostaglandin inhibitors could potentially help if menstrual related, however she reports history of gastric ulcer / GI bleed in the past, for which she should avoid NSAIDs. Medications: New: Tylenol #3 Continue: Prescriptions for ciprofloxacin, flagyl, promethazine, scopolamine were sent from ER visit 03/01. Follow up: PCP 3-5 days GI in near future Please call to schedule / confirm appointments Followup: OOTOOT [Primary Care Provider] - Time spent managing pt's care (in minutes): 45
== END 2024-03-03 15:20 | disposition home or self-care (01) ==
LOC: ER 15:30 → ERHOLD 19:13 → 4TH 20:04
PROVIDERS: ADMIT Internal Medicine; ATTEND Hospitalist
DX: K52.9 Noninfective gastroenteritis and colitis, unspecified (principal); I10 Essential (primary) hypertension; R10.9 Unspecified abdominal pain; Z88.1 Allergy status to other antibiotic agents
CPT/HCPCS: 85025 ×2; 36415; 83690; 80053 ×2; 96375; 96374; 99285; J2765; J1200; J2405 ×3; J7030 ×3; J0692 ×2; G0378 ×3

== ENCOUNTER 2024-03-04 21:32 | Emergency (ER) | payer OTHER ==
[2024-03-04] MEDS ORDERED: FAMOTIDINE 20 MG/2 ML VIAL IV ONE (22:33)
[2024-03-04] MEDS ORDERED: ONDANSETRON 4 MG/2 ML VIAL ONE (22:33)
[2024-03-04] MEDS ORDERED: MORPHINE 4 MG/ML SYR ONE (22:33)
[2024-03-04 22:39] LABS: Absolute Lymphocytes (CBC) 0.8 K/uL (0.7-4.9); Absolute Monocytes 0.7 K/uL (0.1-1.3); Absolute Neutrophil 13.2 K/uL (1.8-8.0); Basophils % 0.2 % (0-1.3); Hematocrit 39.6 % (36.0-45.0); Hemoglobin 12.3 g/dL (12.0-15.0); Lymphocytes % 5.2 % (15.3-44.8); MCV 74.1 fL (80-100); MPV 8.4 fL (7.6-11.3); Neutrophils % 89.6 % (41.7-73.7); Platelets 317 thou/uL (152-406); RBC Red Blood Cell Count 5.35 M/uL (3.86-4.86); Red Cell Distribution Width 23.4 % (12.1-15.2)
[2024-03-04 22:47] LABS: Specific Gravity 1.026 (1.005-1.030); Urine Bacteria 20-50 /HPF (<20); Urine Bilirubin NEGATIVE (Negative); Urine Blood Negative (Negative); Urine Clarity Extremely Turbid (Clear); Urine Color Yellow (Yellow); Urine Culture Reflex Order REFLEXED; Urine Glucose NEGATIVE (Negative); Urine Ketones 4+ (Over) (Negative); Urine Microscopic Reflex YN ORDER UMIC; Urine Mucus 4+ /HPF (None Seen); Urine Nitrite NEGATIVE (Negative); Urine Protein 1+ (Negative); Urine RBC <5 /HPF (None Seen); Urine Urobilinogen Normal (Normal); Urine pH 6.5 (5.0-7.0)
[2024-03-04 22:52] LABS: Albumin 4.4 g/dL (3.4-5.0); Albumin/Globulin Ratio 1.1 (1.1-1.8); Anion Gap 11.2 mEq/L (5.0-15.0); Bilirubin Total 0.5 mg/dL (0.2-1.0); Magnesium 1.8 mg/dL (1.6-2.4); Potassium 3.2 mEq/L (3.5-5.1); Protein, Total 8.4 g/dL (6.4-8.2)
[2024-03-04] MEDS ORDERED: PROMETHAZINE INJ 25 MG/ML AMP ONE (23:07)
[2024-03-04 23:47] LABS: Band Neutrophils 1 % (0-1); Differential Total Cells Count 100; Lymphocytes 9 % (15-42); Monocytes 3 % (0-10); Segmented Neutrophils 86 % (40-80)
[2024-03-04 23:48] LABS: Anisocytosis 2+; Blood Morphology Comment NOTED (NOT SEEN); Microcytosis 1+; Ovalocytes 2+; Platelet Estimate ADEQ; Target Cells 1+
[2024-03-05] MEDS ORDERED: POTASSIUM 25 MEQ EFFERV TAB ONE (00:13)
[2024-03-05] MEDS ORDERED: CEFTRIAXONE 1000 MG/VIAL ONE (00:22)
--- NOTE | 2024-03-05 00:50 | EDPHYS ---
Physician Documentation [facility] Name: Elizabeth Gillis Age: 23 yrs Sex: Female : 2000 Arrival Date: 03/04/2024 Time: 21:32 Bed 5 Private MD: ED Physician Jose Luis Brown HPI: 03/04 22:15 This 23 yrs old Black Female presents to ER via Ambulatory with complaints of cp Nausea/Vomiting, Abdominal Pain. 22:15 The patient presents to the emergency department with nausea, that is moderate, cp vomiting, that is intermittent. 22:15 Onset: The symptoms/episode began/occurred 3 day(s) ago. cp 22:15 Possible causes: colitis. cp 22:15 Associated signs and symptoms: Pertinent negatives: constipation, diarrhea, fever, GI cp bleeding. 22:15 The patient has been recently been admitted at [facility], was cp discharged earlier this week, for similar complaints, reports checking self out of hospital so she could work. 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 - Infectious Disease History:: Denies. - Social history:: Smoking status: Patient reports the use of cigarette tobacco products, denies chronic smoking, but will smoke occasionally, Patient uses alcohol, occasionally. street drugs, marijuana. ROS: 22:20 Constitutional: Positive for poor PO intake, Negative for body aches, chills, fever, cp 22:20 Eyes: Negative for injury, pain, redness, and discharge, cp 22:20 ENT: Negative for drainage from ear(s), ear pain, sore throat, difficulty swallowing, difficulty handling secretions, 22:20 Cardiovascular: Negative for chest pain, edema, palpitations, 22:20 Respiratory: Negative for cough, shortness of breath, wheezing, 22:20 Abdomen/GI: Positive for abdominal pain, nausea and vomiting, Negative for diarrhea, constipation, black/tarry stool, rectal bleeding, 22:20 Neuro: Negative for altered mental status, dizziness, headache, syncope, weakness, 22:20 All other systems are negative, Exam: 22:25 Constitutional: The patient appears in no acute distress, alert, awake, cp non-diaphoretic, non-toxic, well developed, well nourished, 22:25 Head/Face: Normocephalic, atraumatic. cp 22:25 Eyes: Periorbital structures: appear normal, Conjunctiva: normal, no exudate, no injection, Sclera: no appreciated abnormality, Lids and lashes: appear normal, bilaterally, 22:25 ENT: External ear(s): are unremarkable, Ear canal(s): are normal, clear, TM's: are normal, no evidence of bulging, no erythema, Nose: is normal, Mouth: Lips: moist, Oral mucosa: pink and intact, moist, Posterior pharynx: Airway: no evidence of obstruction, patent, 22:25 Chest/axilla: Inspection: normal, 22:25 Cardiovascular: Rate: tachycardic, Rhythm: regular, 22:25 Respiratory: the patient does not display signs of respiratory distress, Respirations: normal, no use of accessory muscles, no retractions, labored breathing, is not present, Breath sounds: are clear throughout, no decreased breath sounds, no stridor, no wheezing, 22:25 Abdomen/GI: Inspection: abdomen appears normal, Bowel sounds: active, all quadrants, cp Palpation: soft, in all quadrants, mild abdominal tenderness, in all quadrants, rebound tenderness, is not appreciated, involuntary guarding, is not appreciated, 22:25 Back: pain, is absent, 22:25 Neuro: Orientation: to person, place \T\ time. Mentation: is normal, Motor: moves all fours, strength is normal, Sensation: is normal, Vital Signs: 21:59 BP 118 / 74; Pulse 106; Resp 17; Temp 98.3; Pulse Ox 100% ; Weight 61.23 kg; Height 5 ap3 ft. 7 in. ; Pain 7/10; 03/05 00:38 BP 110 / 72; Pulse 98; Resp 17; Temp 98; Pulse Ox 100% ; Pain 0/10; bm8 01:25 BP 112 / 74; Pulse 95; Resp 17; Temp 98; Pulse Ox 99% ; Pain 0/10; bm8 03/04 21:59 Body Mass Index 21.14 (61.23 kg, 170.18 cm) ap3 03/04 21:59 Pain Scale: Adult ap3 03/05 00:38 Pain Scale: Adult bm8 01:25 Pain Scale: Adult bm8 Mattie Coma Score: 03/04 22:44 Eye Response: spontaneous(4). Motor Response: obeys commands(6). Verbal Response: bm8 oriented(5). Total: 15. 03/05 00:38 Eye Response: spontaneous(4). Motor Response: obeys commands(6). Verbal Response: bm8 oriented(5). Total: 15. 01:25 Eye Response: spontaneous(4). Motor Response: obeys commands(6). Verbal Response: bm8 oriented(5). Total: 15. MDM: 03/04 21:50 Patient medically screened. 03/05 00:48 Data reviewed: vital signs, nurses notes, lab test result(s), and as a result, I will cp discharge patient. 00:48 I considered the following discharge prescriptions or medication management in the emergency department Medications were administered in the Emergency Department. See SEP. 03/04 22:04 Order name: CBC with Diff; Complete Time: 23:57 03/04 23:18 Interpretation: Normal except: WBC 14.70; RBC 5.35; MCV 74.1; MCH 23.0; MCHC 31.0; RDW cp 23.4; LEA% 89.6; LYM% 5.2; NEUT A 13.2. 03/04 22:04 Order name: CMP; Complete Time: 23:18 03/04 23:18 Interpretation: Normal except: K 3.2; BUN 3; TP 8.4; GLOB 4.0. 03/04 22:04 Order name: Lipase; Complete Time: 23:18 03/04 22:04 Order name: Test, Urine; Complete Time: 22:52 03/04 22:04 Order name: Urinalysis w/ reflexes; Complete Time: 22:52 03/04 22:52 Interpretation: Normal except: [facility] Extremely Turbid; UKET 4+ (Over); UPROT 1+; UESTR cp 500; UWBC 10-20; UBACT 20-50; MUCUS 4+. 03/04 22:04 Order name: Magnesium; Complete Time: 23:18 cp 03/04 22:45 Order name: Manual Differential; Complete Time: 23:57 EDMS 03/04 23:58 Interpretation: Normal except: SEGS 86; LYM 9. cp 03/04 22:51 Order name: Urine Culture EDKS 03/04 22:04 Order name: IV Saline Lock; Complete Time: 22:39 cp 03/04 22:04 Order name: Labs collected and sent; Complete Time: 22:39 cp Administered Medications: 03/04 22:38 Drug: Famotidine IVP 20 mg IVP once; dilute with 10 mL 0.9% NaCl; give over 2 minutes bm8 Route: IVP; Site: right antecubital; 23:52 Follow up: Response: No adverse reaction bm8 22:39 Drug: Ondansetron IVP 4 mg IVP once; over 2 minutes Route: IVP; Site: right antecubital;bm8 23:52 Follow up: Response: No adverse reaction bm8 22:39 Drug: morphine IVP or IV 4 mg IVP once over 4 mins Route: IVP; Infused Over: 4 mins; bm8 Site: right antecubital; 23:52 Follow up: Response: No adverse reaction bm8 23:13 Drug: Promethazine IVP 25 mg IVP once Route: IVP; Site: right antecubital; bm8 23:52 Follow up: Response: No adverse reaction bm8 03/05 00:17 Drug: Potassium PO Effervescent Tablet 50 mEq PO once; dissolve in 4 ounces of water or bm8 juice Route: PO; 00:39 Follow up: Response: No adverse reaction bm8 00:33 Drug: Rocephin IV 1 grams IV at calculated rate once; Given slow IV push per pharmacy bm8 instructions Route: IV; Rate: calculated rate; Site: right antecubital; 00:39 Follow up: Response: No adverse reaction; IV Status: Completed infusion; IV Intake: [id number] 01:24 Drug: MetoCLOPramide PO 10 mg PO once Route: PO; bm8 01:24 Follow up: Response: Medication Administered at Departure bm8 Disposition Summary: 03/05/24 00:49 Discharge Ordered Notes: Location: Home cp Problem: an ongoing problem cp Symptoms: have improved cp Condition: Stable cp Diagnosis - Nausea with vomiting, unspecified cp - Abdominal pain, unspecified cp Followup: cp - With: Private Physician - When: 2 - 3 days - Reason: Recheck today's complaints Discharge Instructions: - Discharge Summary Sheet cp - Abdominal Pain, Adult cp - Nausea and Vomiting, Adult cp Forms: - Medication Reconciliation Form cp - Antibiotic Education cp - Prescription Opioid Use cp - Patient Portal Instructions cp - Leadership Thank You Letter cp Prescriptions: - Reglan 10 mg Oral Tablet - take 1 tablet ORAL route every 6 hours take 30 minutes before meals and at cp bedtime; 20 tablet; Refills: 0, Product Selection Permitted Addendum: 03/11/2024 20:33 I was immediately available for consultation during this patient's visit. I did not e c2 personally see the patient or discuss the patient with the SEVERIANO. . Signatures: Dispatcher [employer] EDMS Madhu Gimenez PA PA cp Prokisch, Amanda RN RN ap3 Jose Luis Brown MD MD ec2 Hiro Painter RN RN bm8 Corrections: (The following items were deleted from the chart) 03/04 22:04 22:04 CBC+H.LAB.BRZ ordered. EDMS EDMS 22:04 22:04 COMPREHENSIVE METABOLIC PANEL+C.LAB.BRZ ordered. EDMS EDMS 22:04 22:04 LIPASE+C.LAB.BRZ ordered. EDMS EDMS 22:04 22:04 Test, Urine+UC.LAB.BRZ ordered. EDMS EDMS 22:04 22:04 Urinalysis+U.LAB.BRZ ordered. EDMS EDMS 22:04 22:04 MAGNESIUM+C.LAB.BRZ ordered. EDMS EDMS
--- NOTE | 2024-03-05 00:50 | ER ---
Nurse's Notes [facility] Name: Elizabeth Gillis Age: 23 yrs Sex: Female : 2000 Arrival Date: 03/04/2024 Time: 21:32 Bed 5 Private MD: Diagnosis: Nausea with vomiting, unspecified;Abdominal pain, unspecified Presentation: 03/04 21:59 Chief complaint: Patient states: she has been having abdominal pain, nausea and ap3 vomiting for three days. patient also reports blood pressure that has been up and down and feeling faint. patient is concerned because she is at home with her young child most of the day. patient currently rates her pain as a 7/10 on the pain scale. Coronavirus screen: At this time, the client does not indicate any symptoms associated with coronavirus-19. Ebola Screen: No symptoms or risks identified at this time. Initial Sepsis Screen: Does the patient meet any 2 criteria? HR > 90 bpm. Does the patient have a suspected source of infection? No. Patient's initial sepsis screen is negative. Risk Assessment: Do you want to hurt yourself or someone else? Patient reports no desire to harm self or others. Onset of symptoms was March 01, 2024. 21:59 Method Of Arrival: Ambulatory ap3 21:59 Acuity: LEX 3 ap3 Triage Assessment: 22:02 General: Appears in no apparent distress. Behavior is calm, cooperative, appropriate ap3 for age. Pain: Complains of pain in abdomen Pain currently is 7 out of 10 on a pain scale. Pain began gradually, 2-3 days ago. Neuro: Level of Consciousness is awake, alert, obeys commands, Oriented to person, place, time, situation, Appropriate for age Speech is normal. Cardiovascular: Patient's skin is warm and dry. Respiratory: Airway is patent Respiratory effort is even, unlabored, Respiratory pattern is regular, symmetrical. GI: Reports lower abdominal pain, upper abdominal pain, nausea, vomiting. 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 - Infectious Disease History:: Denies. - Social history:: Smoking status: Patient reports the use of cigarette tobacco products, denies chronic smoking, but will smoke occasionally, Patient uses alcohol, occasionally. street drugs, marijuana. Screenin:03 Abuse screen: Denies threats or abuse. Nutritional screening: No deficits noted. ap3 Tuberculosis screening: No symptoms or risk factors identified. 22:03 [facility] ED Fall Risk Assessment (Adult) History of falling in the last 3 months, ap3 including since admission No falls in past 3 months (0 pts) Confusion or Disorientation No (0 pts) Intoxicated or Sedated No (0 pts) Impaired Gait No (0 pts) Mobility Assist Device Used No (0 pt) Altered Elimination No (0 pt) Score/Fall Risk Level 0 - 2 = Low Risk Oriented to surroundings, Maintained a safe environment, Educated pt \T\ family on fall prevention, incl call for assistance when getting out of bed, Assessed \T\ reinforced patient's understanding of fall precautions, Hourly rounding (assess needs \T\ fall precautionary measures) done, Used ambulatory aids as needed (educated on \T\ assisted with), Used gait belt as appropriate. Assessment: 22:44 General: Appears in no apparent distress. comfortable, Behavior is calm, cooperative, bm8 appropriate for age. Pain: Complains of pain in abdomen Pain currently is 2 out of 10 on a pain scale. Neuro: No deficits noted. Level of Consciousness is awake, alert, obeys commands, Oriented to person, place, time, situation, Appropriate for age. Cardiovascular: Denies chest pain, Capillary refill < 3 seconds in bilateral fingers toes Patient's skin is warm and dry. Respiratory: Airway is patent Respiratory effort is even, unlabored, Respiratory pattern is regular, symmetrical. GI: Abdomen is flat, non-distended, Bowel sounds present X 4 quads. Abdomen is tender to palpation in right lower quadrant and left lower quadrant Reports lower abdominal pain, diarrhea, nausea. : No signs and/or symptoms were reported regarding the genitourinary system. EENT: No signs and/or symptoms were reported regarding the EENT system. Derm: No signs and/or symptoms reported regarding the dermatologic system. Musculoskeletal: No signs and/or symptoms reported regarding the musculoskeletal system. 03/05 00:38 Reassessment: Patient appears in no apparent distress at this time. Patient and/or bm8 family updated on plan of care and expected duration. Pain level reassessed. Patient is alert, oriented x 3, equal unlabored respirations, skin warm/dry/pink. Patient denies pain at this time. Patient states feeling better. Patient states symptoms have improved. 01:25 Reassessment: Patient appears in no apparent distress at this time. Patient and/or bm8 family updated on plan of care and expected duration. Pain level reassessed. Patient is alert, oriented x 3, equal unlabored respirations, skin warm/dry/pink. Patient states feeling better. Patient states symptoms have improved. GI: Patient currently denies abdominal pain, nausea, pain, vomiting. Vital Signs: 03/04 21:59 BP 118 / 74; Pulse 106; Resp 17; Temp 98.3; Pulse Ox 100% ; Weight 61.23 kg; Height 5 ap3 ft. 7 in. ; Pain 7/10; 03/05 00:38 BP 110 / 72; Pulse 98; Resp 17; Temp 98; Pulse Ox 100% ; Pain 0/10; bm8 01:25 BP 112 / 74; Pulse 95; Resp 17; Temp 98; Pulse Ox 99% ; Pain 0/10; bm8 03/04 21:59 Body Mass Index 21.14 (61.23 kg, 170.18 cm) ap3 03/04 21:59 Pain Scale: Adult ap3 03/05 00:38 Pain Scale: Adult bm8 01:25 Pain Scale: Adult bm8 Mattie Coma Score: 03/04 22:44 Eye Response: spontaneous(4). Motor Response: obeys commands(6). Verbal Response: bm8 oriented(5). Total: 15. 03/05 00:38 Eye Response: spontaneous(4). Motor Response: obeys commands(6). Verbal Response: bm8 oriented(5). Total: 15. 01:25 Eye Response: spontaneous(4). Motor Response: obeys commands(6). Verbal Response: bm8 oriented(5). Total: 15. ED Course: 03/04 21:36 Patient arrived in ED. gm2 21:45 Madhu Gimenez PA is PHCP. cp 21:45 Jose Luis Brown MD is Attending Physician. cp 22:01 Triage completed. ap3 22:03 Arm band placed on right wrist. ap3 22:38 Painter, Hiro, RN is Primary Nurse. bm8 22:44 Patient has correct armband on for positive identification. Placed in gown. Bed in low bm8 position. Call light in reach. Side rails up X 1. Client placed on continuous cardiac and pulse oximetry monitoring. NIBP monitoring applied. Pulse ox on. NIBP on. Door closed. Noise minimized. Warm blanket given. Pillow given. Verbal reassurance given. Head of bed elevated. 22:44 No provider procedures requiring assistance completed. Initial lab(s) drawn, by missy forte sent to lab. Urine collected: clean catch specimen, clear. Inserted saline lock: 20 gauge in right antecubital area, using aseptic technique. ,using aseptic technique. ultrasound guided Blood collected. Flushed with 10 mL NS. Patient maintains SpO2 saturation greater than 95% on room air. 03/05 00:38 Provided Education on: post er care. bm8 00:38 IV discontinued, intact, bleeding controlled, No redness/swelling at site. Pressure bm8 dressing applied. Administered Medications: 03/04 22:38 Drug: Famotidine IVP 20 mg IVP once; dilute with 10 mL 0.9% NaCl; give over 2 minutes bm8 Route: IVP; Site: right antecubital; 23:52 Follow up: Response: No adverse reaction bm8 22:39 Drug: Ondansetron IVP 4 mg IVP once; over 2 minutes Route: IVP; Site: right antecubital;bm8 23:52 Follow up: Response: No adverse reaction bm8 22:39 Drug: morphine IVP or IV 4 mg IVP once over 4 mins Route: IVP; Infused Over: 4 mins; bm8 Site: right antecubital; 23:52 Follow up: Response: No adverse reaction bm8 23:13 Drug: Promethazine IVP 25 mg IVP once Route: IVP; Site: right antecubital; bm8 23:52 Follow up: Response: No adverse reaction bm8 03/05 00:17 Drug: Potassium PO Effervescent Tablet 50 mEq PO once; dissolve in 4 ounces of water or bm8 juice Route: PO; 00:39 Follow up: Response: No adverse reaction bm8 00:33 Drug: Rocephin IV 1 grams IV at calculated rate once; Given slow IV push per pharmacy bm8 instructions Route: IV; Rate: calculated rate; Site: right antecubital; 00:39 Follow up: Response: No adverse reaction; IV Status: Completed infusion; IV Intake: [id number] 01:24 Drug: MetoCLOPramide PO 10 mg PO once Route: PO; bm8 01:24 Follow up: Response: Medication Administered at Departure bm8 Medication: 03/04 22:44 VIS not applicable for this client. bm8 Intake: 03/05 00:39 IV: 50ml; Total: 50ml. bm8 Outcome: 00:49 Discharge ordered by . celine 01:25 Discharged to home ambulatory, bm8 01:25 Condition: stable 01:25 Instructed on discharge instructions, follow up and referral plans. no drinking with medication, no driving heavy equipment, medication usage, safety practices, Demonstrated understanding of instructions, follow-up care, medications, Prescriptions given X 1, 01:28 Patient left the ED. bm8 Signatures: Madhu Gimenez PA PA cp Prokisch, Amanda, RN RN [email or web address] Yue Álvarez 2 Hiro Painter RN RN bm8
[2024-03-05] MEDS ORDERED: METOCLOPRAMIDE 5 MG TAB ONE (01:17)
[2024-03-05 01:51] VITALS: TEMP 98
[2024-03-05 01:57] VITALS: BP 112/74; O2SAT 99
== END 2024-03-05 01:28 | disposition home or self-care (01) ==
LOC: ER 21:32
DX: R11.2 Nausea with vomiting, unspecified (principal); R10.84 Generalized abdominal pain; F17.210 Nicotine dependence, cigarettes, uncomplicated
CPT/HCPCS: 87088; 85025; 81001; 87086; 36415; 83735; 81025; 83690; 80053; 96375; 96374; 99284; J2550; J2405; J0696

== ENCOUNTER 2024-03-05 17:35 | Emergency (ER) | payer OTHER ==
[2024-03-05] MEDS ORDERED: FAMOTIDINE 20 MG/2 ML VIAL IV ONE (18:35)
[2024-03-05] MEDS ORDERED: PROMETHAZINE INJ 25 MG/ML AMP ONE (18:35)
[2024-03-05] MEDS ORDERED: NA CHLORIDE 0.9% 0 ML ONE (18:36)
[2024-03-05] MEDS ORDERED: NA CHLORIDE 0.9% 1,000 ML ONE (18:36)
[2024-03-05] MEDS ORDERED: MORPHINE 4 MG/ML SYR ONE (18:58)
[2024-03-05 19:18] LABS: Absolute Basophils 0.1 K/uL (0-0.5); Absolute Lymphocytes (CBC) 0.9 K/uL (0.7-4.9); Absolute Monocytes 0.6 K/uL (0.1-1.3); Absolute Neutrophil 10.6 K/uL (1.8-8.0); Basophils % 0.5 % (0-1.3); Hematocrit 42.6 % (36.0-45.0); Hemoglobin 13.4 g/dL (12.0-15.0); Lymphocytes % 7.6 % (15.3-44.8); MCH 23.3 pg (27.0-35.0); MCHC 31.4 g/dL (32.0-36.0); MCV 74.2 fL (80-100); MPV 8.5 fL (7.6-11.3); Monocytes % 4.7 % (3.3-12.3); Neutrophils % 87.2 % (41.7-73.7); Nucleated Red Blood Cells % 0.1 % (0-0); Platelets 284 thou/uL (152-406); RBC Red Blood Cell Count 5.73 M/uL (3.86-4.86); Red Cell Distribution Width 23.7 % (12.1-15.2)
[2024-03-05 19:41] LABS: Albumin 4.1 g/dL (3.4-5.0); Anion Gap 12.3 mEq/L (5.0-15.0); Bilirubin Total 0.4 mg/dL (0.2-1.0); Protein, Total 8.1 g/dL (6.4-8.2)
[2024-03-05 19:42] LABS: Potassium 4.3 mEq/L (3.5-5.1)
[2024-03-05 20:05] LABS: Anisocytosis 2+; Blood Morphology Comment NOTED (NOT SEEN); Hypochromasia 1+; Platelet Estimate ADEQ; White Blood Cell Scan OK (OK)
[2024-03-05 21:16] LABS: Specific Gravity 1.026 (1.005-1.030)
[2024-03-05 21:17] LABS: Urine Bacteria <20 /HPF (<20); Urine Crystals Unidentified Few /HPF (None Seen); Urine Microscopic Reflex YN ORDER UMIC; Urine Mucus 3+ /HPF (None Seen); Urine WBC Clump Rare /HPF (None Seen); Urine Yeast (Budding) Moderate /HPF (None Seen)
[2024-03-05 21:18] LABS: Barbiturates NEGATIVE (NEGATIVE); Benzodiazepines NEGATIVE (NEGATIVE); Cocaine NEGATIVE (NEGATIVE); METHAMPHETAM NEGATIVE (NEGATIVE); Methadone NEGATIVE (NEGATIVE); Opiates POSITIVE (NEGATIVE); Phencyclidine NEGATIVE (NEGATIVE); THC Cannibis POSITIVE (NEGATIVE)
[2024-03-05 21:20] LABS: Specific Gravity 1.026 (1.005-1.030); Urine Bilirubin NEGATIVE (Negative); Urine Blood Negative (Negative); Urine Clarity Extremely Turbid (Clear); Urine Color Yellow (Yellow); Urine Glucose NEGATIVE (Negative); Urine Ketones 4+ (Over) (Negative); Urine Nitrite NEGATIVE (Negative); Urine Protein 1+ (Negative); Urine Urobilinogen Normal (Normal); Urine pH 6.5 (5.0-7.0)
[2024-03-05 21:23] LABS: Urine Culture Reflex Order NOT NEEDED
[2024-03-05 21:30] LABS: PT Prothrombin Time 14.5 SECONDS (9.4-12.5); PTT, Activated Partial Thromb 32.8 SECONDS (24.3-36.9); Protime INR 1.3
--- NOTE | 2024-03-05 21:52 | RAD REPORT ---
EXAM DESCRIPTION: CTAbdomen Pelvis Wo Contrast - 03/05/2024 9:32 pm CLINICAL HISTORY: ABD PAIN COMPARISON: Abdomen Pelvis W Contrast dated 03/01/2024 TECHNIQUE: CT of the abdomen and pelvis was performed. All CT scans are performed using dose optimization technique as appropriate and may include automated exposure control or mA/KV adjustment according to patient size. FINDINGS: Lower chest: No acute abnormality. Liver: No acute abnormality or suspicious lesions. Biliary: No biliary ductal dilatation. Stomach: No significant focal abnormality. Duodenum: No significant focal abnormality. Pancreas: No significant abnormality. Spleen: No significant abnormality. Adrenal: No suspicious lesions. Kidney/ureter: No hydronephrosis. No renal calculi. Malrotated right kidney. Retroperitoneum: No retroperitoneal adenopathy. Vascular: No aneurysm. Bowel: No bowel obstruction. Increased fluid present at the cecum. Normal appendix suspected based on the location of the appendix on the 02/21/2024 exam.. Limited without IV/oral contrast Peritoneum: Small volume of pelvic free fluid . Bladder: Grossly unremarkable. Reproductive: No adnexal masses. Bones: No acute fracture. Other: n/a IMPRESSION: No acute intra-abdominal abnormality identified within the limitations of a noncontrast CT. A normal appendix is suspected in the right lower quadrant. Increased fluid present within the ce cum but no bowel obstruction. Pelvic free fluid may be physiologic.
--- NOTE | 2024-03-05 22:05 | ER ---
Nurse's Notes [facility] Name: Elizabeth Gillis Age: 23 yrs Sex: Female : 2000 Arrival Date: 03/05/2024 Time: 17:35 Bed 14 Private MD: Diagnosis: Abdominal pain, Generalized;Nausea with vomiting, unspecified Presentation: 03/05 17:47 Chief complaint: Patient states: SEEN YESTERDAY FOR N/V AND ABD PAIN. NOT ABLE TO HOLD db ANYTHING DOWN. STATES SEEN YESTERDAY BACK TODAY BECAUSE SYMPTOMS HAVE CONTINUED. Coronavirus screen: Client denies travel out of the [place] in the last 14 days. At this time, the client does not indicate any symptoms associated with coronavirus-19. Ebola Screen: Patient negative for fever greater than or equal to 101.5 degrees Fahrenheit, and additional compatible Ebola Virus Disease symptoms Patient denies exposure to infectious person. Patient denies travel to an Ebola-affected area in the 21 days before illness onset. No symptoms or risks identified at this time. Initial Sepsis Screen: Does the patient meet any 2 criteria? No. Patient's initial sepsis screen is negative. Does the patient have a suspected source of infection? No. Patient's initial sepsis screen is negative. Risk Assessment: Do you want to hurt yourself or someone else? Patient reports no desire to harm self or others. Onset of symptoms was March 05, 2024. 17:47 Method Of Arrival: Ambulatory db 17:47 Acuity: LEX 3 db Triage Assessment: 17:50 General: Appears in no apparent distress. comfortable, Behavior is calm, cooperative. db Pain: Complains of pain in abdomen. Respiratory: Airway is patent Respiratory effort is even, unlabored, Respiratory pattern is regular, symmetrical. GI: Abdomen is flat, non-distended, Reports nausea, vomiting. Historical: - Allergies: 17:50 Amoxicillin; db - PMHx: 17:50 Cyst of ovary; Irritable bowel syndrome; db - Immunization history:: Adult Immunizations unknown. - Infectious Disease History:: Denies. - Social history:: Smoking status: Patient reports the use of cigarette tobacco products, denies chronic smoking, but will smoke occasionally. Screenin:00 [facility] ED Fall Risk Assessment (Adult) History of falling in the last 3 months, tm6 including since admission No falls in past 3 months (0 pts) Confusion or Disorientation No (0 pts) Intoxicated or Sedated No (0 pts) Impaired Gait No (0 pts) Mobility Assist Device Used No (0 pt) Altered Elimination No (0 pt) Score/Fall Risk Level 0 - 2 = Low Risk Oriented to surroundings, Maintained a safe environment, Educated pt \T\ family on fall prevention, incl call for assistance when getting out of bed. Abuse screen: Denies threats or abuse. Denies injuries from another. Nutritional screening: No deficits noted. Tuberculosis screening: No symptoms or risk factors identified. Assessment: 18:00 General: Appears in no apparent distress. Behavior is calm, cooperative. Pain: tm6 Complains of pain in right lower quadrant and abdomen Pain does not radiate. Pain currently is 8 out of 10 on a pain scale. Neuro: Level of Consciousness is awake, alert, obeys commands, Oriented to person, place, time, situation. Cardiovascular: Patient's skin is warm and dry. Respiratory: Airway is patent Respiratory effort is even, unlabored, Respiratory pattern is regular, symmetrical. GI: Bowel sounds present X 4 quads. Abd is soft and non tender X 4 quads. Reports lower abdominal pain, nausea, vomiting. : No signs and/or symptoms were reported regarding the genitourinary system. EENT: No signs and/or symptoms were reported regarding the EENT system. Derm: No signs and/or symptoms reported regarding the dermatologic system. Musculoskeletal: No signs and/or symptoms reported regarding the musculoskeletal system. 21:00 Reassessment: Patient appears in no apparent distress at this time. Patient and/or tm6 family updated on plan of care and expected duration. Pain level reassessed. Patient is alert, oriented x 3, equal unlabored respirations, skin warm/dry/pink. Patient states feeling better. 22:18 Reassessment: Patient appears in no apparent distress at this time. Patient and/or tm6 family updated on plan of care and expected duration. Pain level reassessed. Patient is alert, oriented x 3, equal unlabored respirations, skin warm/dry/pink. Vital Signs: 17:47 BP 168 / 96; Pulse 91; Resp 16; Temp 99.5; Pulse Ox 95% ; Weight 61.23 kg; Height 5 ft. db 7 in. ; 19:54 BP 136 / 89; Pulse 82; Pulse Ox 100% on R/A; tm6 21:01 BP 119 / 61; Pulse 67; Pulse Ox 99% on R/A; Pain 2/10; tm6 22:15 BP 119 / 87; Pulse 90; Resp 19; Temp 99.1; Pulse Ox 100% on R/A; Pain 2/10; tm6 17:47 Body Mass Index 21.14 (61.23 kg, 170.18 cm) db 21:01 Pain Scale: Adult tm6 22:15 Pain Scale: Adult tm6 ED Course: 17:37 Patient arrived in ED. mr 17:38 Josephine Prado PA-C is PHCP. sb4 17:38 Rahul Quintana MD is Attending Physician. sb4 17:49 [place] Mccray, TRISTAN is Primary Nurse. tm6 17:50 Triage completed. db 17:50 Arm band placed on Patient placed in an exam room. db 18:00 Patient has correct armband on for positive identification. Bed in low position. Call tm6 light in reach. Side rails up X 1. Provided Education on: use of call miller. Client placed on continuous cardiac and pulse oximetry monitoring. NIBP monitoring applied. Pulse ox on. NIBP on. Door closed. Noise minimized. Warm blanket given. 19:11 Initial lab(s) drawn, by me, sent to lab. Inserted saline lock: 24 gauge in left hand, zm using aseptic technique. Blood collected. Flushed with 10 mL NS. 19:11 Lipase Sent. zm 19:11 CMP Sent. zm 19:11 CBC with Diff Sent. zm 20:13 Attending Physician role handed off by Rahul Quintana MD ec2 20:13 Jose Luis Brown MD is Attending Physician. ec2 20:55 First set of blood cultures drawn by me, 25G butterfly in right hand. ty 20:55 Initial lab(s) drawn, by me, sent to lab. 25G butterfly in right hand. ty 20:59 Lactate w/ 2H reflex if indic. Sent. ty 20:59 PT-INR Sent. ty 20:59 Ptt, Activated Sent. ty 20:59 Blood Culture Adult (2) Sent. ty 21:32 CT Abd/Pelvis - Without Contrast In Process Unspecified. EDMS 22:05 Nabor Boyd MD is Referral Physician. ec2 22:06 Report given to Zoë HUDSON. tm6 22:18 No provider procedures requiring assistance completed. IV discontinued, intact, tm6 bleeding controlled, No redness/swelling at site. Pressure dressing applied. Administered Medications: 18:49 CANCELLED (Physician Discretion): [id number] mg IVP once sb4 18:55 Drug: Promethazine IM 25 mg IM once Route: IM; Site: left deltoid; tm6 21:01 Follow up: Response: No adverse reaction; Pain is decreased tm6 19:08 CANCELLED (Physician Discretion): morphine4 mg IM once tm6 19:17 Drug: NS 0.9% IV 1000 ml IV at 1 bolus Per protocol; 1000 mL bolus Route: IV; Rate: 1 tm6 bolus; Site: left hand; 22:18 Follow up: Response: No adverse reaction; IV Status: Completed infusion; IV Intake: tm6 1000ml 19:17 Drug: Famotidine IVP 20 mg IVP once; dilute with 10 mL 0.9% NaCl; give over 2 minutes tm6 Route: IVP; Site: left hand; 21:01 Follow up: Response: No adverse reaction tm6 19:17 Drug: morphine IVP or IV 4 mg IVP once over 4 mins Route: IVP; Infused Over: 4 mins; tm6 Site: left hand; 21:01 Follow up: Response: No adverse reaction; Pain is decreased tm6 20:14 Drug: Droperidol IVP 1.25 mg IVP once Route: IVP; Site: left hand; tm6 21:00 Follow up: Response: No adverse reaction; Marked relief of symptoms tm6 22:17 Drug: Ondansetron IVP 4 mg IVP once; over 2 minutes Route: IVP; Site: left hand; tm6 22:18 Follow up: Response: Medication administered at discharge. tm6 Medication: 18:00 VIS not applicable for this client. tm6 Intake: 22:18 IV: 1000ml; Total: 1000ml. tm6 Outcome: 22:05 Discharge ordered by . ec2 22:19 Discharged to home ambulatory, tm6 22:19 Condition: stable 22:19 Discharge instructions given to patient, Instructed on discharge instructions, follow up and referral plans. Demonstrated understanding of instructions, follow-up care, 22:19 Patient left the ED. tm6 Signatures: Dispatcher [employer] EDChante Mckinley Reg Reg mr Kacy Jaquez Whit Love, RN RN db Josephine Prado PA-C PA-C sb4 Jose Luis Brown MD MD ec2 [place] Mccray RN RN tm6 Gualberto Loco Corrections: (The following items were deleted from the chart) 17:51 17:47 61.23 kg; Height 5 ft. 7 in.; BMI: 21.1; renetta jackson
--- NOTE | 2024-03-05 22:05 | EDPHYS ---
Physician Documentation [facility] Name: Elizabeth Gillis Age: 23 yrs Sex: Female : 2000 Arrival Date: 03/05/2024 Time: 17:35 Bed 14 Private MD: ED Physician Jose Luis Brown HPI: 03/05 18:01 This 23 yrs old Black Female presents to ER via Ambulatory with complaints of Abdominal sb4 Pain, Vomiting. 18:01 Patient states that she started experiencing nausea, vomiting, and diarrhea about 3 sb4 days ago. Initially seen in the ED, diagnosed with colitis, and discharged with oral antibiotics. She came back later that day and was admitted for intractable nausea and vomiting. She states that she requested to be discharged after 1 night because she had no one else to watch her child. She states that she started experiencing intractable nausea vomiting once again and came to the ED and was discharged home with pain medications and antiemetics. She states that she is still not getting any better because she cannot hold down any of the medication she has been prescribed. Historical: - Allergies: 17:50 Amoxicillin; db - PMHx: 17:50 Cyst of ovary; Irritable bowel syndrome; db - Immunization history:: Adult Immunizations unknown. - Infectious Disease History:: Denies. - Social history:: Smoking status: Patient reports the use of cigarette tobacco products, denies chronic smoking, but will smoke occasionally. ROS: 18:01 Constitutional: Negative for fever, chills, and weight loss, sb4 18:01 Abdomen/GI: Positive for abdominal pain, nausea, vomiting, and diarrhea, 18:01 All other systems are negative, Exam: 18:01 Constitutional: This is a well developed, well nourished patient who is awake, alert, sb4 and in no acute distress. Head/Face: Normocephalic, atraumatic. Eyes: Extra-ocular motions intact. Periorbital areas with no swelling, redness, or edema. ENT: Mucous membranes moist. Cardiovascular: Regular rate and rhythm with a normal S1 and S2. Respiratory: Lungs have equal breath sounds bilaterally, clear to auscultation and percussion. No rales, rhonchi or wheezes noted. No increased work of breathing, no retractions or nasal flaring. Skin: Warm, dry with normal turgor. Normal color with no rashes, no lesions, and no evidence of cellulitis. 18:01 Abdomen/GI: Inspection: abdomen appears normal, Bowel sounds: normal, Palpation: soft, moderate abdominal tenderness, in the right lower quadrant, Vital Signs: 17:47 BP 168 / 96; Pulse 91; Resp 16; Temp 99.5; Pulse Ox 95% ; Weight 61.23 kg; Height 5 ft. db 7 in. ; 19:54 BP 136 / 89; Pulse 82; Pulse Ox 100% on R/A; tm6 21:01 BP 119 / 61; Pulse 67; Pulse Ox 99% on R/A; Pain 2/10; tm6 22:15 BP 119 / 87; Pulse 90; Resp 19; Temp 99.1; Pulse Ox 100% on R/A; Pain 2/10; tm6 17:47 Body Mass Index 21.14 (61.23 kg, 170.18 cm) db 21:01 Pain Scale: Adult tm6 22:15 Pain Scale: Adult tm6 MDM: 17:44 Patient medically screened. sb4 18:51 Awaiting: blood work/IV. difficult to obtain IV access. sb4 20:19 Data reviewed: vital signs. ED course: Patient signed out to me with pending workup. ec2 Plan is follow-up lab work and reassess. Patient has been here multiple times for the same complaint over the past couple of days.. 20:59 ED course: When compared to external records, WBC down from 14.7. Urine obtained ec2 yesterday is noninfectious. . 21:56 ED course: CT imaging shows no acute intra-abdominal process. Patient with labs that ec2 are improving from recent visits, . 03/05 18:00 Order name: CBC with Diff; Complete Time: 20:09 [facility] 03/05 18:00 Order name: CMP; Complete Time: 19:43 [facility] 03/05 18:00 Order name: Lipase; Complete Time: 19:43 [facility] 03/05 18:00 Order name: Test, Urine; Complete Time: 21:27 [facility] 03/05 18:00 Order name: Urinalysis w/ reflexes; Complete Time: 21:27 [facility] 03/05 19:21 Order name: UDS; Complete Time: 21:27 [facility] 03/05 19:29 Order name: CBC Smear Scan; Complete Time: 20:09 EDMS 03/05 19:43 Order name: Blood Culture Adult (2) sb4 03/05 19:43 Order name: Lactate w/ 2H reflex if indic.; Complete Time: 21:27 sb4 03/05 19:43 Order name: PT-INR; Complete Time: 21:33 sb4 03/05 19:43 Order name: Ptt, Activated; Complete Time: 21:33 sb4 03/05 21:00 Order name: CT Abd/Pelvis - Without Contrast; Complete Time: 21:56 ec2 03/05 18:00 Order name: IV Saline Lock; Complete Time: 19:11 sb4 03/05 18:00 Order name: Labs collected and sent; Complete Time: 19:11 sb4 Administered Medications: 18:49 CANCELLED (Physician Discretion): [id number] mg IVP once sb4 18:55 Drug: Promethazine IM 25 mg IM once Route: IM; Site: left deltoid; tm6 21:01 Follow up: Response: No adverse reaction; Pain is decreased tm6 19:08 CANCELLED (Physician Discretion): morphine4 mg IM once tm6 19:17 Drug: NS 0.9% IV 1000 ml IV at 1 bolus Per protocol; 1000 mL bolus Route: IV; Rate: 1 tm6 bolus; Site: left hand; 22:18 Follow up: Response: No adverse reaction; IV Status: Completed infusion; IV Intake: tm6 1000ml 19:17 Drug: Famotidine IVP 20 mg IVP once; dilute with 10 mL 0.9% NaCl; give over 2 minutes tm6 Route: IVP; Site: left hand; 21:01 Follow up: Response: No adverse reaction tm6 19:17 Drug: morphine IVP or IV 4 mg IVP once over 4 mins Route: IVP; Infused Over: 4 mins; tm6 Site: left hand; 21:01 Follow up: Response: No adverse reaction; Pain is decreased tm6 20:14 Drug: Droperidol IVP 1.25 mg IVP once Route: IVP; Site: left hand; tm6 21:00 Follow up: Response: No adverse reaction; Marked relief of symptoms tm6 22:17 Drug: Ondansetron IVP 4 mg IVP once; over 2 minutes Route: IVP; Site: left hand; tm6 22:18 Follow up: Response: Medication administered at discharge. tm6 Disposition: 21:58 I reviewed the patient's care provided by Advanced Practice Provider \T\ agree w/ the ec2 diagnosis \T\ care plan. I personally saw the pt \T\ performed a substantive portion of the visit, incldng all aspects of the (History/Exam/Medical Decision Making). Disposition Summary: 03/05/24 22:05 Discharge Ordered Notes: Location: Home ec2 Condition: Stable ec2 Diagnosis - Abdominal pain, Generalized ec2 - Nausea with vomiting, unspecified ec2 Followup: ec2 - With: Nabor Boyd MD - When: - Reason: Recheck today's complaints Discharge Instructions: - Discharge Summary Sheet ec2 - Abdominal Pain, Adult ec2 Forms: - Medication Reconciliation Form ec2 - Antibiotic Education ec2 - Prescription Opioid Use ec2 - Patient Portal Instructions ec2 - Leadership Thank You Letter ec2 Signatures: Dispatcher [employer] Whit Zepeda RN RN Josephine Martino PA-C PA-C sb4 Jose Luis Brown MD MD ec2 [place] Mccray RN RN tm6 Corrections: (The following items were deleted from the chart) 18:49 18:00 Promethazine IVP 12.5 mg IVP once ordered. sb4 sb4 19:08 18:56 morphine IM 4 mg IM once ordered. sb4 tm6 19:59 18:01 Patient states that she started experiencing nausea, vomiting, and diarrhea about sb4 3 days ago. Initially seen in the ED, diagnosed with colitis, and discharged with oral antibiotics. She came back later that day and was admitted for intractable nausea and vomiting. She states that she requested to be discharged after 1 night because she had no one else to watch her child. She states that she started experiencing intractable nausea vomiting once again and came to the ED and was discharged home with pain medications and antiemetics. She states that she is still not getting any better because she cannot hold down any of the medication she has been. sb4
[2024-03-05] MEDS ORDERED: ONDANSETRON 4 MG/2 ML VIAL ONE (22:10)
[2024-03-05 22:32] VITALS: TEMP 99.5
[2024-03-05 22:43] VITALS: BP 119/61; O2SAT 99
== END 2024-03-05 22:19 | disposition home or self-care (01) ==
LOC: ER 17:35
DX: R10.84 Generalized abdominal pain (principal); R11.2 Nausea with vomiting, unspecified; R19.7 Diarrhea, unspecified; F17.210 Nicotine dependence, cigarettes, uncomplicated
CPT/HCPCS: 87205; 96361; 96372; 96374; 96375; 99284

== ENCOUNTER 2024-05-16 18:47 | Inpatient (IN) | payer OTHER ==
[2024-05-16] MEDS ORDERED: ONDANSETRON 4 MG (ODT) TAB ONE (19:34)
[2024-05-16] MEDS ORDERED: NA CHLORIDE 0.9% 1,000 ML ONE (21:31)
[2024-05-16] MEDS ORDERED: ONDANSETRON 4 MG/2 ML VIAL ONE (21:31)
[2024-05-16 22:24] LABS: Specific Gravity 1.026 (1.005-1.030)
[2024-05-16] MEDS ORDERED: DICYCLOMINE HCL 10 MG CAP ONE (22:24)
[2024-05-16] MEDS ORDERED: KETOROLAC 30 MG/ML INJ ONE (22:24)
[2024-05-16 22:35] LABS: Specific Gravity 1.026 (1.005-1.030); Sqamous Epithelial <5 /HPF (None Seen); Urine Bacteria None Seen /HPF (<20); Urine Bilirubin NEGATIVE (Negative); Urine Blood Negative (Negative); Urine Clarity Turbid (Clear); Urine Color Light-Yellow (Yellow); Urine Crystals Unidentified Few /HPF (None Seen); Urine Culture Reflex Order NOT NEEDED; Urine Glucose NEGATIVE (Negative); Urine Ketones 4+ (Over) (Negative); Urine Microscopic Reflex YN ORDER UMIC; Urine Mucus Slight /HPF (None Seen); Urine Nitrite NEGATIVE (Negative); Urine Protein 1+ (Negative); Urine RBC <5 /HPF (None Seen); Urine Urobilinogen Normal (Normal); Urine WBC <5 /HPF (<5); Urine pH 7.5 (5.0-7.0)
[2024-05-16 22:36] LABS: Absolute Lymphocytes (CBC) 0.4 K/uL (0.7-4.9); Absolute Monocytes 0.1 K/uL (0.1-1.3); Absolute Neutrophil 16.4 K/uL (1.8-8.0); Basophils % 0.1 % (0-1.3); Hematocrit 42.3 % (36.0-45.0); Hemoglobin 13.3 g/dL (12.0-15.0); Lymphocytes % 2.3 % (15.3-44.8); MCHC 31.4 g/dL (32.0-36.0); MCV 79.7 fL (80-100); MPV 8.6 fL (7.6-11.3); Monocytes % 0.6 % (3.3-12.3); Platelets 335 thou/uL (152-406)
[2024-05-16 22:42] LABS: Albumin 4.6 g/dL (3.4-5.0); Anion Gap 10.5 mEq/L (5.0-15.0); Bilirubin Total 0.4 mg/dL (0.2-1.0); Globulin 4.7 g/dL (2.3-3.5); Potassium 3.5 mEq/L (3.5-5.1); Protein, Total 9.3 g/dL (6.4-8.2)
[2024-05-16] MEDS ORDERED: PROMETHAZINE INJ 25 MG/ML AMP ONE (23:45)
[2024-05-17 00:02] LABS: Band Neutrophils 6 % (0-1); Blood Morphology Comment NOTED (NOT SEEN); Differential Total Cells Count 100; Lymphocytes 3 % (15-42); Monocytes 0 % (0-10); Platelet Estimate ADEQ; Segmented Neutrophils 91 % (40-80)
[2024-05-17 00:03] LABS: Burr Cells 1+
--- NOTE | 2024-05-17 00:04 | RAD REPORT ---
EXAM: CT ABDOMEN AND PELVIS WITH CONTRAST Abdomen Pelvis W Contrast CLINICAL INDICATION: Abd pain; Nausea / vomiting TECHNIQUE: CT abdomen and pelvis was performed, following the administration of contrast, as per [facility] protocol. Axial, sagittal, and coronal reconstructions were obtained. IV CONTRAST: Yes ORAL CONTRAST: Not administered, limiting the sensitivity of this exam for evaluation of bowel, retro peritoneum, and intraabdominal fluid collections. RADIATION DOSE REDUCTION: his exam was performed according to the departmental dose-optimization prog kailee which includes automated exposure control, adjustment of the mA and/or kV according to patient size and/or use of iterative reconstruction technique. Total DLP: 452.8. CTDI: 8.7. COMPARISON: Abdominal pelvic CT March 01, 2024 FINDINGS: LOWER CHEST: No acute consolidation or effusion LIVER: Normal enhancement without significant focal lesion. Subcentimeter hypodense focus right lobe of live r stable compatible with incidental cysts. No routine follow-up recommended. GALLBLADDER: Contracted. No radiopaque calculus BILE DUCTS: No biliary dilatation identified. PANCREAS: Normal enhancement without significant focal lesion SPLEEN: Normal size and enhancement ADRENALS: No pathologic process. KIDNEYS AND URETERS: No significant focal lesion. No calculus or hydronephrosis URINARY BLADDER: The bladder is collapsed GASTROINTESTINAL TRACT: No bowel obstruction The colon and small bowel are collapsed. There is no significant retained stool or fluid No significant colonic diverticulosis. No diverticulitis APPENDIX: No inflammatory changes in region of appendix. The appendix is normal LYMPH NODES: No lymphadenopathy. PERITONEUM/MESENTERY: No free air, significant free fluid, mass or fluid collection. VESSELS: Aorta normal caliber. Mesenteric vessels patent ADDITIONAL RETROPERITONEAL FINDINGS: None. REPRODUCTIVE ORGANS: ain to her uterus. ABDOMINAL AND PELVIC FRANCO: No acute abnormality MUSCULOSKELETAL: No acute abnormality ADDITIONAL FINDINGS: None. IMPRESSION: 1. No bowel obstruction. Colon and small bowel are collapsed. No significant retained stool or flui d. 2. No diverticulitis. Normal appendix. 3. No free air. No free fluid. 4. No hydronephrosis. Standardized Report: [id number]. Electronically signed by: Hernán Leonardo MD 05/16/2024 11:43 PM SWING TYPE LATHE OPERATOR RP Due to temporary technical issues with the [employer] reporting system, reports are being simon d by the in-house radiologist without review as a courtesy to ensure prompt reporting the interpreting radiologist is fully responsible for the content of the report. Transcribed Date/Time: 05/17/2024 12:04 AM
--- NOTE | 2024-05-17 00:55 | ER ---
Nurse's Notes [facility] Name: Elizabeth Gillis Age: 23 yrs Sex: Female : 2000 Arrival Date: 05/16/2024 Time: 18:47 Bed 14 Private MD: Diagnosis: Nausea with vomiting, unspecified-intractable;Diarrhea, unspecified Presentation: 05/16 19:08 Chief complaint: Patient states: N/V/D for 2 days, passed out earlier. Coronavirus ko1 screen: At this time, the client does not indicate any symptoms associated with coronavirus-19. Ebola Screen: No symptoms or risks identified at this time. Initial Sepsis Screen: Does the patient meet any 2 criteria? No. Patient's initial sepsis screen is negative. Does the patient have a suspected source of infection? No. Patient's initial sepsis screen is negative. Risk Assessment: Do you want to hurt yourself or someone else? Patient reports no desire to harm self or others. Onset of symptoms is unknown. 19:08 Method Of Arrival: Ambulatory ko1 19:08 Acuity: LEX 3 ko1 Triage Assessment: 19:10 General: Appears ill, Behavior is calm, cooperative, appropriate for age. Pain: ko1 Complains of pain in abdomen. GI: Reports diarrhea, nausea, vomiting. 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 - Infectious Disease History:: Denies. - Social history:: Smoking status: Patient denies any tobacco usage or history of. Screenin:00 [facility] ED Fall Risk Assessment (Adult) History of falling in the last 3 months, kj2 including since admission No falls in past 3 months (0 pts) Confusion or Disorientation No (0 pts) Intoxicated or Sedated No (0 pts) Impaired Gait No (0 pts) Mobility Assist Device Used No (0 pt) Altered Elimination No (0 pt) Score/Fall Risk Level 0 - 2 = Low Risk Maintained a safe environment, Hourly rounding (assess needs \T\ fall precautionary measures) done. Abuse screen: Denies threats or abuse. Denies injuries from another. Nutritional screening: No deficits noted. Tuberculosis screening: No symptoms or risk factors identified. Assessment: 21:00 General: Appears uncomfortable, Behavior is cooperative. Pain: Complains of pain in kj2 abdomen Pain currently is 7 out of 10 on a pain scale. Neuro: Level of Consciousness is awake, alert, obeys commands, Oriented to person, place, time, situation. Cardiovascular: Patient's skin is warm and dry. Respiratory: Airway is patent Respiratory effort is even, unlabored. GI: Abdomen is flat, Reports lower abdominal pain, upper abdominal pain, nausea, vomiting, since last 2 days. : No signs and/or symptoms were reported regarding the genitourinary system. 22:20 Reassessment: patient refused covid, flu test due to roman catholic reasons. kj2 23:37 Reassessment: Patient and/or family updated on plan of care and expected duration. Pain kj2 level reassessed. Patient is alert, oriented x 3, equal unlabored respirations, skin warm/dry/pink. 05/17 00:30 Reassessment: Patient appears in no apparent distress at this time. Patient and/or kj2 family updated on plan of care and expected duration. Pain level reassessed. Patient is alert, oriented x 3, equal unlabored respirations, skin warm/dry/pink. 01:30 Reassessment: Patient appears in no apparent distress at this time. Patient and/or kj2 family updated on plan of care and expected duration. Pain level reassessed. Patient is alert, oriented x 3, equal unlabored respirations, skin warm/dry/pink. 02:30 Reassessment: Patient appears in no apparent distress at this time. Patient and/or kj2 family updated on plan of care and expected duration. Pain level reassessed. Patient is alert, oriented x 3, equal unlabored respirations, skin warm/dry/pink. Vital Signs: 05/16 19:08 BP 168 / 95; Pulse 70; Resp 16; Temp 97; Pulse Ox 100% ; ko1 21:00 BP 160 / 93; Pulse 66; Resp 20; Pulse Ox 100% on R/A; kj2 21:40 Weight 58.97 kg; Height 5 ft. 7 in. ; kj2 22:33 BP 126 / 85; Pulse 64; Resp 18; Pulse Ox 100% on R/A; kj2 23:38 BP 152 / 76; Pulse 68; Resp 20; Pulse Ox 100% on R/A; kj2 05/17 01:40 BP 148 / 78; Pulse 64; Resp 18; Pulse Ox 100% on R/A; kj2 05/16 21:40 Body Mass Index 20.36 (58.97 kg, 170.18 cm) kj2 ED Course: 05/16 18:50 Patient arrived in ED. mr 19:10 Triage completed. ko1 19:10 Arm band placed on right wrist. Patient placed in waiting room, Patient notified of ko1 wait time. 19:30 Lil[facility]C [facility]. kb 19:30 Saeid Chavez MD is Attending Physician. kb 19:44 Radiology exam delayed due to lab results not completed at this time. IV insertion sm9 attempt and/or patient not having appropriate IV at this time. 19:44 Radiology exam delayed due to test not completed at this time. sm9 21:00 Hayley Hawley, RN is Primary Nurse. kj2 21:00 Patient has correct armband on for positive identification. Placed in gown. Provided kj2 Education on: call light, fall precaution. 21:29 Missed attempt(s): 20 gauge in left antecubital area. kj2 21:42 No provider procedures requiring assistance completed. kj2 22:01 Inserted saline lock: 20 gauge in left upper arm, using aseptic technique. Blood kj2 collected. Flushed with 10 mL NS. 22:19 Test, Urine Sent. kj2 22:19 Urinalysis w/ reflexes Sent. kj2 22:51 CT Abd/Pelvis - IV Contrast Only In Process Unspecified. EDMS 23:37 Warm blanket given. Assisted to bathroom. kj2 05/17 00:44 Attending Physician role handed off by Saeid Chavez MD sp4 00:44 Ramos Petersen MD is Attending Physician. sp4 01:01 Wang Small MD is Hospitalizing Provider. kb 03:24 Missed attempt(s): 20 gauge in right antecubital area. Bleeding controlled, band aid bm8 applied, catheter tip intact. 03:34 Inserted saline lock: 20 gauge in right upper arm, using aseptic technique. Flushed bm8 with 10 mL NS. 10:11 Patient admitted, IV remains in place. rs5 Administered Medications: 05/16 19:34 Drug: Ondansetron PO 4 mg PO once Route: PO; kb 23:39 Follow up: Response: No adverse reaction kj2 22:19 Drug: Ondansetron IVP 4 mg IVP once; over 2 minutes Route: IVP; Site: left upper arm; kj2 22:19 Drug: NS 0.9% IV 1000 ml IV at 1 bolus Per protocol; to be given as a bolus over 60 kj2 minutes Route: IV; Rate: 1 bolus; Site: left upper arm; 22:32 Drug: Ketorolac IVP 15 mg IVP once Route: IVP; Site: left upper arm; kj2 23:39 Follow up: Response: No adverse reaction kj2 22:32 Drug: Dicyclomine PO 20 mg PO once Route: PO; kj2 23:39 Follow up: Response: No adverse reaction kj2 23:49 Drug: Promethazine IVP 12.5 mg IVP once Route: IVP; Site: left upper arm; kj2 05/17 01:38 Follow up: Response: No adverse reaction kj2 01:38 Drug: NS 0.9% IV 1000 ml IV at 125 ml/hr continuous Route: IV; Rate: 125 ml/hr; Site: 2 left upper arm; 01:39 Drug: metoCLOPramide IVP 10 mg IVP once; over 1 to 2 minutes Route: IVP; Site: left [facility] upper arm; Medication: 05/16 21:42 VIS not applicable for this client. kj2 Outcome: 05/17 00:54 Discharge ordered by . kb 01:02 Decision to Hospitalize by Provider. kb 10:11 Admitted to Med/surg accompanied by tech, with chart, rs5 10:11 Condition: stable 10:11 Instructed on the need for admit, Demonstrated understanding of instructions, 10:13 Patient left the ED. rs5 Signatures: Dispatcher [employer] EDMS Liliana Saleh, VACATION SALES ADVISOR-C VACATION SALES ADVISOR-CkChante Fisher, Reg Reg mr Katie Ramirez, RN RN ko1 Adria Phelps RN RN rs5 Ramos Petersen MD MD sp4 Aracelis Hicks Hiro Westfall, RN RN bm8 Hayley Hawley, RN RN kj2
--- NOTE | 2024-05-17 00:55 | EDPHYS ---
Physician Documentation [facility] Name: Elizabeth Gillis Age: 23 yrs Sex: Female : 2000 Arrival Date: 05/16/2024 Time: 18:47 Bed 14 Private MD: ED Physician Ramos Petersen HPI: 05/16 23:38 This 23 yrs old Black Female presents to ER via Ambulatory with complaints of Vomiting, kb Passed Out Prior To Arrival. 23:38 Pt is a 23 year old female who presents for n/v/d that started 2 days ago. Denies kb fever. Reports abd pain due to vomiting. No aggravating or alleviating factors. Took zofran and phenergan today without relief. . 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 - Infectious Disease History:: Denies. - Social history:: Smoking status: Patient denies any tobacco usage or history of. ROS: 23:40 Constitutional: As per HPI kb Exam: 23:40 Constitutional: This is a well developed, well nourished patient who is awake, alert, kb and in no acute distress. Head/Face: Normocephalic, atraumatic. ENT: Moist Mucous membranes Cardiovascular: Regular rate Respiratory: Respirations even and unlabored. No increased work of breathing. Talking in full sentences Abdomen/GI: Soft, non-tender. No distention Skin: Warm, dry with normal turgor. Normal color. MS/ Extremity: Pulses equal, no cyanosis. Neurovascular intact. Full, normal range of motion. Neuro: Awake and alert, GCS 15, oriented to person, place, time, and situation. Vital Signs: 19:08 BP 168 / 95; Pulse 70; Resp 16; Temp 97; Pulse Ox 100% ; ko1 21:00 BP 160 / 93; Pulse 66; Resp 20; Pulse Ox 100% on R/A; kj2 21:40 Weight 58.97 kg; Height 5 ft. 7 in. ; kj2 22:33 BP 126 / 85; Pulse 64; Resp 18; Pulse Ox 100% on R/A; kj2 23:38 BP 152 / 76; Pulse 68; Resp 20; Pulse Ox 100% on R/A; kj2 05/17 01:40 BP 148 / 78; Pulse 64; Resp 18; Pulse Ox 100% on R/A; kj2 05/16 21:40 Body Mass Index 20.36 (58.97 kg, 170.18 cm) kj2 MDM: 05/16 19:30 Medical Screening Exam initiated kb 23:40 Differential diagnosis: viral gastroenteritis, dehydration, abnormal electrolytes. Data kb reviewed: vital signs, nurses notes. 05/17 01:00 Consideration of Admission/Observation Patient was admitted/placed on observation. kb Escalation of care including admission/observation considered. Management of patient was discussed with the following: Discussed CT findings with Dr Petersen. Recommends outpatient follow up. Upon reexamination of pt, she is still unable to tolerate po intake after treatment. Will try reglan at this time and admit for intractable vomiting. . Counseling: I had a detailed discussion with the patient and/or guardian regarding the historical points, exam findings, and any diagnostic results supporting the discharge/admit diagnosis, lab results, radiology results, the need for further work-up and treatment in the hospital. 01:04 Management of patient was discussed with the following: Hospitalist: Hospitalist, pt kb accepted for admission under Dr Small. 03:20 ED course: Patient assessed to be stable for admission.. sp4 05/16 19:26 Order name: CBC with Diff; Complete Time: 00:07 05/16 19:26 Order name: CMP; Complete Time: 22:47 05/16 19:26 Order name: Lipase; Complete Time: 22:47 rn 05/16 19:26 Order name: Test, Urine; Complete Time: 22:30 rn 05/16 19:26 Order name: Urinalysis w/ reflexes; Complete Time: 22:37 rn 05/16 19:28 Order name: Flu 05/16 19:28 Order name: SARS-COV-2 Antigen Rapid; Complete Time: 22:21 rn 05/16 22:55 Order name: Manual Differential; Complete Time: 00:07 EDWI 05/17 01:10 Order name: Test, Urine [facility] 05/17 01:11 Order name: Urine Drug Screen EDMS 05/17 02:01 Order name: Lactate w/ 2H reflex if indic. EDMS 05/17 02:01 Order name: Liver (Hepatic) Function EDMS 05/17 02:01 Order name: Magnesium EDMS 05/17 02:01 Order name: NT PRO-BNP EDWI 05/17 02:01 Order name: Phosphorus EDWI 05/17 02:01 Order name: Thyroid Stimulating Hormone EDMS 05/17 02:01 Order name: Urinalysis w/ reflexes EDMS 05/17 02:02 Order name: Lipid Profile EDWI 05/17 02:02 Order name: Lipid Profile EDWI 05/16 19:26 Order name: CT Abd/Pelvis - IV Contrast Only rn 05/16 19:26 Order name: IV Saline Lock; Complete Time: 22:19 rn 05/16 19:26 Order name: Labs collected and sent; Complete Time: 22:19 rn Administered Medications: 05/16 19:34 Drug: Ondansetron PO 4 mg PO once Route: PO; kb 23:39 Follow up: Response: No adverse reaction kj2 22:19 Drug: Ondansetron IVP 4 mg IVP once; over 2 minutes Route: IVP; Site: left upper arm; kj2 22:19 Drug: NS 0.9% IV 1000 ml IV at 1 bolus Per protocol; to be given as a bolus over 60 kj2 minutes Route: IV; Rate: 1 bolus; Site: left upper arm; 22:32 Drug: Ketorolac IVP 15 mg IVP once Route: IVP; Site: left upper arm; kj2 23:39 Follow up: Response: No adverse reaction kj2 22:32 Drug: Dicyclomine PO 20 mg PO once Route: PO; kj2 23:39 Follow up: Response: No adverse reaction kj2 23:49 Drug: Promethazine IVP 12.5 mg IVP once Route: IVP; Site: left upper arm; kj2 05/17 01:38 Follow up: Response: No adverse reaction kj2 01:38 Drug: NS 0.9% IV 1000 ml IV at 125 ml/hr continuous Route: IV; Rate: 125 ml/hr; Site: kj2 left upper arm; 01:39 Drug: metoCLOPramide IVP 10 mg IVP once; over 1 to 2 minutes Route: IVP; Site: left kj2 upper arm; Disposition: 03:20 Co-signature as Attending Physician, Ramos Petersen MD I agree with the assessment sp4 and plan of care. I reviewed the patient's care provided by Advanced Practice Provider \T\ agree w/ the diagnosis \T\ care plan. I personally saw the pt \T\ performed a substantive portion of the visit, incldng all aspects of the (History/Exam/Medical Decision Making). Disposition Summary: 05/17/24 01:02 Hospitalization Ordered Notes: Hospitalization Status: Observation kb Provider: Wang Small Condition: Stable(05/17/24 01:02) kb Problem: new kb Symptoms: are unchanged kb Bed/Room Type: Standard kb Location: Telemetry/MedSurg (observation)(05/17/24 09:11) em1 Room Assignment: 415(05/17/24 09:11) em1 Diagnosis - Nausea with vomiting, unspecified - intractable(05/17/24 01:02) kb - Diarrhea, unspecified(05/17/24 01:02) kb Forms: - Medication Reconciliation Form kb - SBAR form kb - Leadership Thank You Letter kb Signatures: Dispatcher [employer] EDMS Liliana Saleh, ORE FEEDER-C ORE FEEDER-Ckb Saeid Chavez MD MD rn Martinez, Eric em1 Nancy Tejeda, RN RN lg3 Katie Ramirez, RN RN merly1 Cindy Goff rv1 Ramos Petersen MD MD sp4 Hayley Hawley RN RN kj2 Corrections: (The following items were deleted from the chart) 05/16 19:27 19:27 CBC+H.LAB.BRZ ordered. EDMS EDMS 19:27 19:27 COMPREHENSIVE METABOLIC PANEL+C.LAB.BRZ ordered. EDMS EDMS 19:27 19:27 LIPASE+C.LAB.BRZ ordered. EDMS EDMS 19:27 19:27 Test, Urine+UC.LAB.BRZ ordered. EDMS EDMS 19:27 19:27 Urinalysis+U.LAB.BRZ ordered. EDMS EDMS 19:27 19:27 Abdomen Pelvis W Con+CT.RAD.BRZ ordered. EDMS EDMS 05/17 00:57 00:54 Home kb kb 00:57 00:54 Stable kb kb 00:57 00:54 Nausea with vomiting, unspecified kb kb 00:57 00:54 Diarrhea, unspecified kb kb 01: 00:53 Management of patient was discussed with the following: Dr Petersen, recommends kb outpatient treatment. kb : 00:53 Counseling: I had a detailed discussion with the patient and/or guardian kb regarding the historical points, exam findings, and any diagnostic results supporting the discharge/admit diagnosis, lab results, radiology results, the need for outpatient follow up, a family practitioner, to return to the emergency department if symptoms worsen or persist or if there are any questions or concerns that arise at home, kb 02:06 01:02 Telemetry/MedSurg (observation) kb rv1 02:06 01:02 kb rv1 09:11 02:06 [facility] ER HOLD rv1 em1 09:11 02:06 ERHOLD- rv1 em1
[2024-05-17] MEDS ORDERED: NA CHLORIDE 0.9% 1,000 ML ONE (01:26)
[2024-05-17] MEDS ORDERED: METOCLOPRAMIDE 10 MG/2mL INJ ONE ×2 (01:26→07:33)
[2024-05-17 01:28] LABS: Barbiturates NEGATIVE (NEGATIVE); Benzodiazepines POSITIVE (NEGATIVE); Cocaine NEGATIVE (NEGATIVE); METHAMPHETAM NEGATIVE (NEGATIVE); Methadone NEGATIVE (NEGATIVE); Opiates NEGATIVE (NEGATIVE); Phencyclidine NEGATIVE (NEGATIVE); THC Cannibis POSITIVE (NEGATIVE)
[2024-05-17] MEDS: CEFTRIAXONE 1000 MG/VIAL IM ONE (02:00)
[2024-05-17] MEDS: NA CHLORIDE 0.9% 1,000 ML IV SCH (02:00)
--- NOTE | 2024-05-17 02:07 | P.HP ---
Certification for Inpatient Patient admitted to: Observation With expected LOS: <2 Midnights Practitioner: I am a practitioner with admitting privileges, knowledge of patient current condition, hospital course, and medical plan of care. Services: Services provided to patient in accordance with Admission requirements found in Title 42 Section 412.3 of the Code of Federal Regulations Patient History Date of Service: 05/17/24 Reason for admission: intractable vomiting History of Present Illness: 23-year-old woman with a past medical history significant for IBS presented to the emergency department complaining of intractable nausea and vomiting for the past 2 days. The patient reports that she has had 30 episodes of non-bloody emesis today. She states that she frequently has nausea and vomiting, and takes Zofran and Phenergan, but today these medications provided minimal improvement. Also, the patient reports two nonbloody bowel movements today. She denies fever, and . Urine test negative. The patient is a current smoker, and states she smokes a pack a week. Lipase within normal limits. Patient was found to have a UTI on this admission. She reports dysuria, and urinary frequency. Allergies amoxicillin Allergy (Verified 03/02/24 20:40) Anaphylaxis Home Medications: Codeine/APAP [Tylenol #3*] 1 tab PO Q6H PRN #10 tab 03/03/24 - Past Medical/Surgical History Diabetic: No -: IBS -: Recent preeclampsia -: Vaginal Delivery September 2023 -: EGD January 2024 - Family History Sister -: GI disease, Cancer Notes: Crohn's and stomach cancer - Social History Smoking Status: Current every day smoker (pack/week) Counseled patient to stop smoking for: less than 10 minutes Alcohol use: Yes CD- Drugs: No Caffeine use: Yes Review of Systems Gastrointestinal: Nausea, Vomiting, Abdominal Pain (mild abdominal pain in all quadrants), No Distention Genitourinary: Dysuria, Frequency Physical Examination - Vital Signs Temperature: 97.0 F Blood Pressure: 148/78 Pulse: 64 Respirations: 18 Pulse Ox (%): 100 (room air) - Physical Exam General: Alert, Oriented x3 HEENT: Atraumatic, Normocephalic Neck: JVD not distended Respiratory: Clear to auscultation bilaterally Cardiovascular: No edema, Regular rate/rhythm, No gallops, No rubs, No murmurs Gastrointestinal: Normal bowel sounds, Non-distended, Tenderness (right and left lower abdominal quadrants with mild tenderness) Musculoskeletal: No swelling, No erythema, No tenderness, No warmth Neurological: Normal strength at 5/5 x4 extr, Sensation intact - Studies Laboratory Data (last 24 hrs) 05/16/24 05/16/24 22:00 22:00 WBC 16.90 H Hgb 13.3 Hct 42.3 Plt Count 335 Sodium 139 Potassium 3.5 BUN 5 L Creatinine 0.77 Glucose 119 H Total Bilirubin 0.4 AST 24 ALT 43 Alkaline Phosphatase 87 Lipase 14 Assessment and Plan - Problems (Diagnosis) (1) Intractable vomiting with nausea Current Visit: Yes Status: Acute (2) UTI (urinary tract infection) Current Visit: Yes Status: Acute (3) Smoking Current Visit: Yes Status: Acute - Plan Intractable vomiting with nausea: Admit to observation NPO diet IVF ordered normal lipase lab work ordered to trend IV Zofran, and po metoclopramide ordered CT A/P revealed no bowel obstruction, no diverticulitis, no hydronephrosis UTI: IM ceftriaxone ordered Smoking: Patient has been counseled on the importance of smoking cessation. The patient voiced understanding, and all her questions were answered to her satisfaction. - Advance Directives Does patient have a Living Will: No Does patient have a Durable POA for Healthcare: No
[2024-05-17] MEDS ORDERED: CEFTRIAXONE 1000 MG/VIAL ONE (06:24)
[2024-05-17 06:33] LABS: ALT/SGPT 31 U/L (13-56); AST/SGOT 16 U/L (15-37); Albumin/Globulin Ratio 1.1 (1.1-1.8); Alkaline Phosphatase 70 U/L (45-117); Bilirubin Total 0.4 mg/dL (0.2-1.0); Globulin 3.7 g/dL (2.3-3.5); Magnesium 1.9 mg/dL (1.6-2.4); NT PRO-BNP 462 pg/mL (<125); Phosphorus 3.3 mg/dL (2.5-4.9); Protein, Total 7.7 g/dL (6.4-8.2); Thyroid Stimulating Hormone 0.081 uIU/mL (0.358-3.740)
[2024-05-17 06:34] LABS: Bilirubin Direct < 0.2 mg/dL (0-0.2); Bilirubin Indirect, Calculated 0.2 mg/dL (0.2-0.8)
[2024-05-17 06:47] VITALS: BMI 20.3
[2024-05-17] MEDS ORDERED: MORPHINE 2 MG/ML SYR ONE (07:33)
[2024-05-17] MEDS: ENOXAPARIN 40 MG/0.4 ML SQ SCH (07:39)
[2024-05-17] MEDS: MORPHINE 2 MG/ML SYR IV PRN (07:40)
[2024-05-17] MEDS: METOCLOPRAMIDE 10MG/10ML UCUP PO SCH (07:40)
[2024-05-17] MEDS: ONDANSETRON 4 MG/2 ML VIAL IV PRN (11:15)
[2024-05-17 11:52] LABS: Absolute Lymphocytes (CBC) 0.8 K/uL (0.7-4.9); Absolute Monocytes 0.6 K/uL (0.1-1.3); Absolute Neutrophil 10.4 K/uL (1.8-8.0); Basophils % 0.2 % (0-1.3); Hemoglobin 11.2 g/dL (12.0-15.0); Lymphocytes % 6.8 % (15.3-44.8); MCH 24.8 pg (27.0-35.0); MPV 8.9 fL (7.6-11.3); Monocytes % 5.2 % (3.3-12.3); Neutrophils % 87.8 % (41.7-73.7); Platelets 287 thou/uL (152-406); Red Cell Distribution Width 19.4 % (12.1-15.2)
--- NOTE | 2024-05-17 16:48 | P.PN ---
Date of Service: 05/17/24 Patient seen and examined. She is still having nausea and vomiting. Patient states that she wants to try clear liquid diet. Urine toxicology reviewed and noted positive THC and benzodiazepine. UA shows no convincing evidence of UTI. Negative test Possible THC induced hyperemesis Plan: Supportive measures with antiemetics IV hydration Start clear liquid diet. Monitor electrolytes.
[2024-05-17] MEDS: PROMETHAZINE INJ 25 MG/ML AMP IV PRN (18:05)
[2024-05-18] MEDS: SUCRALFATE 1GM/10ML UCUP PO SCH (11:01)
--- NOTE | 2024-05-18 12:14 | P.PN ---
Subjective Date of Service: 05/18/24 Chief Complaint: intractable vomiting Patient is still dry heaving and vomiting. She also reports abdominal pain. Physical Examination - Vital Signs Temperature: 98.4 F Blood Pressure: 117/74 Pulse: 59 Respirations: 16 Pulse Ox (%): 99 - Studies Laboratory Data (last 24 hrs) 05/18/24 06:20 Triglycerides 59 Cholesterol 161 HDL Cholesterol 43 Cholesterol/HDL Ratio 3.74 Assessment And Plan - Plan Physical examination General: Alert and oriented x3, NAD, HEENT: Conjunctiva not pale, anicteric sclera Neck: Supple, no elevated JVD Heart: Heart sounds 1 and 2 normal, regular rhythm, normal rate, no pedal edema Lungs: Clear to auscultation bilaterally, adequate breath sounds bilaterally, no rhonchi or crackles. Abdomen: Soft, nondistended, epigastric tenderness, normal bowel sounds. Extremities: No tenderness, no deformity Skin: Normal skin turgor, no rash, no nodules or ulcers. Neuro: No focal motor deficit. Normal speech. Psychiatry: Normal mood, no agitation. Diagnosis Intractable nausea and vomiting Polysubstance abuse Hyperthyroid state Leukocytosis Plan Intractable nausea and vomiting Hyperthyroid state Related to marijuana induced hyperemesis versus hyperthyroidism. Continue supportive measures with IV hydration, antiemetics. Trial of sucralfate for gastritis. Liquid diet as tolerated. TSH significantly low at 0.08. Check free T4 and free T3 Obtain ultrasound of the thyroid gland. Consider methimazole once patient is able to keep in oral medications without vomiting. Polysubstance abuse Patient advised to quit abusing marijuana and Xanax. Leukocytosis Likely stress related. UA negative for UTI. WBC significantly improved. Continue to monitor CBC. DVT prophylaxis: Lovenox
[2024-05-18] MEDS: Levofloxacin 750mg IV 750 MG/150 ML BAG IV SCH (13:14)
[2024-05-18 16:26] LABS: T3 Free 1.38 pg/mL (2.18-3.98)
[2024-05-19 09:54] LABS: Specific Gravity 1.015 (1.005-1.030)
[2024-05-19] MEDS: KCL 20 MEQ/100 mL IVPB 20 MEQ/100 ML BAG IV SCH (14:48)
[2024-05-19] MEDS ORDERED: SODIUM CHLORIDE 0.9% 10ML INJ IV PRN (16:43)
--- NOTE | 2024-05-19 17:42 | P.PN ---
Subjective Date of Service: 05/19/24 Chief Complaint: intractable vomiting Nursing staff report patient had only 2 bouts of dry heaving and vomiting today. She has tolerated clear liquid diet however only minimal intake. Physical Examination - Vital Signs Temperature: 98.9 F Blood Pressure: 166/103 Pulse: 65 Respirations: 15 Pulse Ox (%): 100 Assessment And Plan - Plan Physical examination General: Alert and oriented x3, NAD, HEENT: Conjunctiva not pale, anicteric sclera Neck: Supple, no elevated JVD Heart: Heart sounds 1 and 2 normal, regular rhythm, normal rate, no pedal edema Lungs: Clear to auscultation bilaterally, adequate breath sounds bilaterally, no rhonchi or crackles. Abdomen: Soft, nondistended, epigastric tenderness, normal bowel sounds. Extremities: No tenderness, no deformity Skin: Normal skin turgor, no rash, no nodules or ulcers. Neuro: No focal motor deficit. Normal speech. Psychiatry: Normal mood, no agitation. Diagnosis Intractable nausea and vomiting Polysubstance abuse Hyperthyroid state Leukocytosis Plan Intractable nausea and vomiting Hyperthyroid state Related to marijuana induced hyperemesis versus hyperthyroidism. Symptoms are improving and patient tolerating clear liquid diet however intake has been minimal. Continue supportive measures with IV hydration, antiemetics. Continue sucralfate for gastritis. IV Protonix added. Liquid diet as tolerated. TSH significantly low at 0.08. Normal free T4 and free T3. Patient may have subclinical hyperthyroidism. Repeat TSH within 2 to 4 weeks recommended Patient advised to follow-up with endocrinology as outpatient. Polysubstance abuse Patient advised to quit abusing marijuana and Xanax. Leukocytosis Likely stress related. UA negative for UTI. WBC significantly improved. Empiric IV Levaquin. DVT prophylaxis: Lovenox
[2024-05-19] MEDS: ZOLPIDEM TARTRATE 5 MG TABLET PO SCH (21:32)
[2024-05-19] MEDS: PANTOPRAZOLE 40 MG INJ IVP SCH (21:33)
[2024-05-20 06:23] LABS: Absolute Basophils 0.1 K/uL (0-0.5); Absolute Eosinophils 0.2 K/uL (0-0.5); Absolute Lymphocytes (CBC) 2.1 K/uL (0.7-4.9); Absolute Monocytes 0.8 K/uL (0.1-1.3); Absolute Neutrophil 5.2 K/uL (1.8-8.0); Basophils % 0.7 % (0-1.3); Hematocrit 35.8 % (36.0-45.0); Hemoglobin 11.5 g/dL (12.0-15.0); Lymphocytes % 25.6 % (15.3-44.8); MCH 25.4 pg (27.0-35.0); MCV 79.3 fL (80-100); MPV 8.8 fL (7.6-11.3); Monocytes % 9.2 % (3.3-12.3); Neutrophils % 62.5 % (41.7-73.7); Platelets 238 thou/uL (152-406); RBC Red Blood Cell Count 4.51 M/uL (3.86-4.86); Red Cell Distribution Width 17.8 % (12.1-15.2)
[2024-05-20] MEDS: POTASSIUM CL SA 10 MEQ TAB PO ONE (09:03)
[2024-05-20] MEDS: D5.45NS W/KCL 20MEQ 20 MEQ/1,000 ML BAG IV SCH (18:51)
--- NOTE | 2024-05-20 19:35 | P.PN ---
Subjective Date of Service: 05/20/24 Chief Complaint: intractable vomiting Patient states he is tolerating a clear liquid diet more. She had 1 episode of dry heaving this morning. She is still complaining of abdominal pain. Physical Examination - Vital Signs Temperature: 99.3 F Blood Pressure: 133/84 Pulse: 90 Respirations: 18 Pulse Ox (%): 100 Assessment And Plan - Plan Physical examination General: Alert and oriented x3, NAD, HEENT:Anicteric sclera Heart: Heart sounds 1 and 2 normal, regular rhythm, normal rate, no pedal edema Lungs: Clear to auscultation bilaterally, adequate breath sounds bilaterally, no rhonchi or crackles. Abdomen: Soft, nondistended, mild epigastric tenderness, normal bowel sounds. Extremities: No tenderness, no deformity Skin: Normal skin turgor, no rash, no nodules or ulcers. Neuro: No focal motor deficit. Normal speech. Psychiatry: Normal mood, no agitation. Diagnosis Intractable nausea and vomiting Polysubstance abuse Hyperthyroid state Leukocytosis Plan Intractable nausea and vomiting Hyperthyroid state Related to marijuana induced hyperemesis versus hyperthyroidism. Symptoms are improving and patient tolerating clear liquid diet however intake has been minimal. Continue supportive measures with IV hydration, antiemetics. Continue sucralfate for gastritis and IV protonix Advance diet to full liquid to see if she would tolerated TSH significantly low at 0.08. Normal free T4 and free T3. Patient may have subclinical hyperthyroidism. Repeat TSH within 2 to 4 weeks recommended Obtain thyroid ultrasound. Polysubstance abuse Patient advised to quit abusing marijuana and Xanax. Leukocytosis Likely stress related. UA negative for UTI. Leukocytosis resolved. Empiric IV Levaquin. DVT prophylaxis: Lovenox
--- NOTE | 2024-05-21 08:40 | RAD REPORT ---
EXAM;Thyroid Para Parotid Gland CLINICAL INDICATION: Hyperthyroidism COMPARISON: None FINDINGS: Right lobe of thyroid gland measures 4.9 x 1.8 x 2.5 cm. Normal echotexture 1.5 cm cyst right lobe with a small nodule. 0.6 cm complex cystic nodule right lobe. Left lobe of thyroid gland measures 5 x 2 x 2 cm. Normal echotexture 0.6 cm complex cystic nodule left lobe thyroid. Isthmus unremarkable The isthmus unremarkable. IMPRESSION: Mild thyromegaly Bilateral cystic and complex cystic nodules thyroid gland are benign
[2024-05-21] MEDS: KCL 20 MEQ/100 mL IVPB 20 MEQ/100 ML BAG IV SCH (10:11)
[2024-05-21] MEDS: HYDRALAZINE HCL 20 MG/ML VIAL IV PRN (10:12)
[2024-05-21 10:30] VITALS: O2SAT 99
[2024-05-21] MEDS: POTASSIUM 25 MEQ EFFERV TAB PO ONE (14:10)
--- NOTE | 2024-05-21 14:50 | P.PN ---
Subjective Date of Service: 05/21/24 Chief Complaint: intractable vomiting Patient continued to experience dry heaving and not tolerating liquid diet. She is still complaining of abdominal pain. Patient reports recent EGD and gastric emptying study 1 month ago which were unremarkable. Physical Examination - Vital Signs Temperature: 99.4 F Blood Pressure: 168/99 Pulse: 67 Respirations: 16 Pulse Ox (%): 95 Assessment And Plan - Plan Physical examination General: Alert and oriented x3, NAD, HEENT:Anicteric sclera Heart: Heart sounds 1 and 2 normal, regular rhythm, normal rate, no pedal edema Lungs: Clear to auscultation bilaterally, adequate breath sounds bilaterally, no rhonchi or crackles. Abdomen: Soft, nondistended, mild epigastric tenderness, normal bowel sounds. Extremities: No tenderness, no deformity Skin: Normal skin turgor, no rash, no nodules or ulcers. Neuro: No focal motor deficit. Normal speech. Psychiatry: Normal mood, no agitation. Diagnosis Intractable nausea and vomiting Polysubstance abuse Hyperthyroid state Leukocytosis Plan Intractable nausea and vomiting Hyperthyroid state Nausea and vomiting related to marijuana induced hyperemesis versus hyperthyroidism. Patient is still dry heaving and not tolerating liquid diet today. Continue supportive measures with IV hydration, antiemetics. Continue sucralfate for gastritis and IV protonix TSH significantly low at 0.08 but Normal free T4 and free T3. Patient may have subclinical hyperthyroidism. Thyroid ultrasound reviewed and noted mild thyromegaly and benign cysts. Repeat TSH today Polysubstance abuse Patient advised to quit abusing marijuana and Xanax. Leukocytosis Likely stress related. UA negative for UTI. Leukocytosis resolved. Discontinue IV Levaquin. DVT prophylaxis: Lovenox
[2024-05-21] MEDS ORDERED: METOCLOPRAMIDE 10 MG/2mL INJ IV PRN (14:51)
[2024-05-21] MEDS: D5 0.9 NS 1,000 ML IV SCH (15:46)
[2024-05-21 16:03] LABS: Magnesium 1.7 mg/dL (1.6-2.4); Phosphorus 3.1 mg/dL (2.5-4.9)
[2024-05-21] MEDS: MAGNESIUM SULFATE 1 gm IVPB 1 GM/100 ML BAG IV ONE (16:26)
[2024-05-21] MEDS: ACETAMINOPHEN 325 MG TABLET PO PRN (16:44)
--- NOTE | 2024-05-22 06:44 | P.PN ---
Date of Service: 05/22/24 Subjective: ROS: 10 point ROS as noted above, otherwise negative Physical Exam: GEN: Alert, NAD HEENT: Normal conjunctiva, sclera anicteric, CV: Regular rate and rhythm, no edema Pulm: Nonlabored respirations on room air, clear bilaterally ABD: soft, nontender, nondistended Neuro: Normal speech, normal affect Problem List: Intractable nausea and vomiting Hyperthyroidism Polysubstance abuse Leukocytosis, resolved; likely reactive Intractable nausea and vomiting Hyperthyroidism On admission presents with 2 days of nausea/vomiting. Reports 30 episodes of non-bloody emesis day of admission. Nausea and vomiting possibly related to marijuana induced hyperemesis versus hyperthyroidism. recent EGD and gastric emptying study 1 month ago which were unremarkable per patient Possible cyclical vomiting syndrome CT abdomen (05/17): no acute findings continue IVF, reglan, phenergan Continue carafate, IV protonix Patient continues with dry-heaving. Unable to tolerate liquids Dr. Dowell, GI, consulted to eval Hyperthyroidism TSH significantly low at 0.08 but Normal free T4 and free T3. Patient may have subclinical hyperthyroidism. Thyroid u/s (05/21): mild thyromegaly, benign bilateral cystic and complex cystic nodules thyroid glands Repeat TSH 0.081 -> 0.336 (05/21) Polysubstance abuse Tox screen positive for benzos/THC Cessation advised. Leukocytosis, resolved; likely reactive likely reactive / related to stress. No evidence of active infection. UA not suggestive of UTI although she did report dysuria, urinary frequency on admission. s/p IV levaquin (05/18-05/21) Leukocytosis resolved. VTE: Lovenox Code: Full Dispo: Home Pending GI recs / tolerating diet Time Spent Managing Pts Care (In Minutes): 41
[2024-05-22 07:16] LABS: Absolute Eosinophils 0.1 K/uL (0-0.5); Absolute Lymphocytes (CBC) 2.3 K/uL (0.7-4.9); Absolute Monocytes 0.7 K/uL (0.1-1.3); Absolute Neutrophil 5.5 K/uL (1.8-8.0); Basophils % 0.4 % (0-1.3); Eosinophils % 0.9 % (0-4.4); Hematocrit 38.7 % (36.0-45.0); Hemoglobin 12.1 g/dL (12.0-15.0); Lymphocytes % 26.9 % (15.3-44.8); MCHC 31.2 g/dL (32.0-36.0); MCV 80.2 fL (80-100); MPV 8.2 fL (7.6-11.3); Neutrophils % 63.8 % (41.7-73.7); Platelets 254 thou/uL (152-406); RBC Red Blood Cell Count 4.83 M/uL (3.86-4.86)
[2024-05-22 07:29] LABS: Magnesium 2.1 mg/dL (1.6-2.4)
[2024-05-22] MEDS: POTASSIUM CL SA 10 MEQ TAB PO ONE (08:25)
[2024-05-22 16:18] VITALS: BP 117/75; TEMP 98.2
--- NOTE | 2024-05-23 06:33 | P.DS ---
Admission Date: 05/18/24 Discharge Date: 05/22/24 Disposition: ROUTINE DISCHARGE Discharge Condition: FAIR Reason for Admission: intractable vomiting Consultations: GI - Dr. Dowell Brief History of Present Illness: 23yo F, PMH: IBS Patient presented to the emergency department complaining of intractable nausea and vomiting for the past 2 days. The patient reports that she has had 30 episodes of non-bloody emesis today. She states that she frequently has nausea and vomiting, and takes Zofran and Phenergan, but today these medications provided minimal improvement. Also, the patient reports two nonbloody bowel movements today. She denies fever, and . Urine test negative. The patient is a current smoker, and states she smokes a pack a week. Lipase within normal limits. Patient was found to have a UTI on this admission. She reports dysuria, and urinary frequency. Hospital Course: Problem List: Intractable nausea and vomiting Hyperthyroidism Polysubstance abuse Leukocytosis, resolved; likely reactive Patient presented with intractable nausea/vomiting. CT abdomen/pelvis without any acute findings. She had improvement of her symptoms while taking reglan and phenergan, but still required these medications. GI was consulted, and Dr. Dowell evaluated her on 05/22. She reported recent negative EGD and gastric emptying study a few months ago. Dr. Dowell recommended getting a repeat gastric emptying study and to consider a stress / psych component to her symptoms. Elizabeth reported having some improvement and requested to be discharged home today since she has an 8month old daughter that she needs to take care of. Currently do not have a formal diagnosis, however after discussion with Dr. Dowell and Elizabeth, we will continue reglan at home for treatment of suspected gastroparesis. Recommended follow up with PCP and psych for discussion on medications for anxiety. Physical Exam: GEN: Alert, NAD HEENT: Normal conjunctiva, sclera anicteric, CV: Regular rate and rhythm, no edema Pulm: Nonlabored respirations on room air, clear bilaterally ABD: soft, nontender, nondistended Neuro: Normal speech, normal affect Vital Signs/Physical Exam: Temp Pulse Resp BP Pulse Ox 98.2 F 84 14 117/75 100 05/22/24 16:00 05/22/24 16:00 05/22/24 16:27 05/22/24 16:00 05/22/24 16:27 Laboratory Data at Discharge: WBC 8.60 thou/uL (4.3-10.9) 05/22/24 07:05 Hgb 12.1 g/dL (12.0-15.0) 05/22/24 07:05 Hct 38.7 % (36.0-45.0) 05/22/24 07:05 Plt Count 254 thou/uL (152-406) 05/22/24 07:05 Sodium 140 mEq/L (136-145) 05/22/24 07:05 Potassium 3.0 mEq/L (3.5-5.1) L 05/22/24 07:05 BUN 4 mg/dL (7-18) L 05/22/24 07:05 Creatinine 0.62 mg/dL (0.55-1.02) 05/22/24 07:05 Glucose 97 mg/dL (74-106) 05/22/24 07:05 Phosphorus 3.1 mg/dL (2.5-4.9) 05/21/24 15:27 Magnesium 2.1 mg/dL (1.6-2.4) 05/22/24 07:05 Total Bilirubin 0.4 mg/dL (0.2-1.0) 05/17/24 05:50 AST 16 U/L (15-37) 05/17/24 05:50 ALT 31 U/L (13-56) 05/17/24 05:50 Alkaline Phosphatase 70 U/L (45-117) 05/17/24 05:50 Triglycerides 59 mg/dL (<150) 05/18/24 06:20 Cholesterol 161 mg/dL (<200) 05/18/24 06:20 HDL Cholesterol 43 mg/dL (40-60) 05/18/24 06:20 Cholesterol/HDL Ratio 3.74 05/18/24 06:20 Lipase 14 U/L (13-75) 05/16/24 22:00 Home Medications: Ondansetron [Ondansetron Odt] 4 mg PO Q6HP PRN 05/19/24 Promethazine Tab [Phenergan] 25 mg PO Q6HP PRN 05/19/24 Metoclopramide HCl [Reglan] 5 mg PO ACHS 30 Days #120 tab 05/22/24 Ondansetron [Zofran] 4 mg PO Q6H PRN #15 tab 05/22/24 New Medications: Metoclopramide HCl [Reglan] 5 mg PO ACHS 30 Days #120 tab Ondansetron [Zofran] 4 mg PO Q6H PRN #15 tab PRN Reason: Nausea / Vomiting Physician Discharge Instructions: Patient presented with intractable nausea/vomiting. CT abdomen/pelvis without any acute findings. She had improvement of her symptoms while taking reglan and phenergan, but still required these medications. GI was consulted, and Dr. Dowell evaluated her on 05/22. She reported recent negative EGD and gastric emptying study a few months ago. Dr. Dowell recommended getting a repeat gastric emptying study and to consider a stress / psych component to her symptoms. Elizabeth reported having some improvement and requested to be discharged home today since she has an 8month old daughter that she needs to take care of. Currently do not have a formal diagnosis, however after discussion with Dr. Dowell and Pastoradavid, we will continue reglan at home for treatment of suspected gastroparesis. Recommended follow up with PCP and psych for discussion on medications for anxiety. Followup: NONE,NONE [Primary Care Provider] - Time spent managing pt's care (in minutes): 45
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
== END 2024-05-22 18:30 | disposition home or self-care (01) | DRG 392 ==
LOC: ER 18:47 → ERHOLD 05-17 01:57 → 4TH 05-17 09:21 → OBSVTOIN 05-18 08:59
PROVIDERS: ADMIT Internal Medicine; ATTEND Hospitalist
DX: K31.84 Gastroparesis (principal); F12.10 Cannabis abuse, uncomplicated; F19.10 Other psychoactive substance abuse, uncomplicated; F41.9 Anxiety disorder, unspecified; K29.70 Gastritis, unspecified, without bleeding; E05.80 Other thyrotoxicosis without thyrotoxic crisis or storm; D72.829 Elevated white blood cell count, unspecified; T40.715A Adverse effect of cannabis, initial encounter; R11.15 Cyclical vomiting syndrome unrelated to migraine; F17.200 Nicotine dependence, unspecified, uncomplicated; Z71.6 Tobacco abuse counseling; Z88.1 Allergy status to other antibiotic agents; Z79.899 Other long term (current) drug therapy
CPT/HCPCS: 36415; 74177; 76536; 80048; 80053; 80061; 80076; 80307; 81001; 81025; 82533; 83605; 83690; 83735; 83880; 84100; 84439; 84443; 84481; 85025; 96374; 96375; 99285; G0378; J0360; J0696; J1650; J2270; J2405; J2470; J2550; J2765; J3475; J3480; J7030; J7042; Q0162; Q9967

== ENCOUNTER 2024-07-20 14:21 | Emergency (ER) | payer OTHER ==
[2024-07-20] MEDS ORDERED: NA CHLORIDE 0.9% 1,000 ML ONE (16:08)
[2024-07-20] MEDS ORDERED: PROMETHAZINE INJ 25 MG/ML AMP ONE (16:08)
[2024-07-20] MEDS ORDERED: MORPHINE 4 MG/ML SYR ONE (16:08)
[2024-07-20 16:13] LABS: Specific Gravity 1.023 (1.005-1.030)
[2024-07-20 16:14] LABS: Absolute Lymphocytes (CBC) 0.5 K/uL (0.7-4.9); Absolute Monocytes 0.3 K/uL (0.1-1.3); Absolute Neutrophil 11.5 K/uL (1.8-8.0); Basophils % 0.4 % (0-1.3); Hematocrit 42.9 % (36.0-45.0); Hemoglobin 13.9 g/dL (12.0-15.0); Lymphocytes % 3.9 % (15.3-44.8); MCH 26.5 pg (27.0-35.0); MCHC 32.3 g/dL (32.0-36.0); MCV 81.9 fL (80-100); MPV 8.6 fL (7.6-11.3); Monocytes % 2.2 % (3.3-12.3); Neutrophils % 93.5 % (41.7-73.7); Platelets 306 thou/uL (152-406); RBC Red Blood Cell Count 5.24 M/uL (3.86-4.86); Red Cell Distribution Width 17.5 % (12.1-15.2)
[2024-07-20 16:16] LABS: Specific Gravity 1.024 (1.005-1.030); Sqamous Epithelial <5 /HPF (None Seen); Urine Bacteria None Seen /HPF (<20); Urine Bilirubin NEGATIVE (Negative); Urine Blood Negative (Negative); Urine Clarity Turbid (Clear); Urine Color Light-Yellow (Yellow); Urine Culture Reflex Order NOT NEEDED; Urine Glucose NEGATIVE (Negative); Urine Ketones 4+ (Over) (Negative); Urine Microscopic Reflex YN ORDER UMIC; Urine Nitrite NEGATIVE (Negative); Urine Protein 1+ (Negative); Urine RBC <5 /HPF (None Seen); Urine Urobilinogen Normal (Normal); Urine WBC <5 /HPF (<5); Urine WBC Clump Rare /HPF (None Seen); Urine Yeast (Budding) Trace /HPF (None Seen); Urine pH 6.5 (5.0-7.0)
[2024-07-20 16:33] LABS: Albumin 4.6 g/dL (3.4-5.0); Anion Gap 13.8 mEq/L (5.0-15.0); Bilirubin Total 0.6 mg/dL (0.2-1.0); Globulin 4.4 g/dL (2.3-3.5); Potassium 3.8 mEq/L (3.5-5.1)
--- NOTE | 2024-07-20 17:42 | RAD REPORT ---
EXAMINATION: CT ABDOMEN AND PELVIS WITH CONTRAST CLINICAL INDICATION: Female, 23 years old.vomiting;Abd pain TECHNIQUE: CT abdomen and pelvis was performed, after the administration of IV contrast, as per [facility] protocol. Axial, sagittal and coronal reconstructions were obtained. One or more of the following dose reduction techniques were used: Automated exposure control, adjustment of the mA and/o r kV according to patient size, and/or iterative reconstruction. Unless otherwise specified, incidental findings do not require dedicated imaging follow-up. [id number]. COMPARISON: 05/16/2024 FINDINGS: LOWER CHEST: No acute process identified.No significant pericardial effusion. Mild circumferential th ickening of the distal esophagus which could reflect esophagitis. UPPER GI: No significant abnormality. LIVER: No significant focal abnormality. GALLBLADDER/BILE DUCTS: No biliary ductal dilatation.? PANCREAS: No mass, ductal dilation, or yoly-pancreatic fluid. SPLEEN: Unremarkable. ADRENALS: No adrenal masses. KIDNEYS AND URETERS: No hydronephrosis.No suspicious renal mass. ABDOMINAL AORTA AND OTHER VESSELS: Normal caliber aorta and IVC. PERITONEUM: Small volume of pelvic free fluid which is likely physiologic. LYMPH NODES: No pathologic lymphadenopathy. ABDOMINAL WALL: Unremarkable SMALL BOWEL/COLON: Small bowel has normal course and caliber. No colonic wall thickening or pericolon ic inflammatory changes.Normal appendix. URINARY BLADDER: Underdistended but grossly unremarkable. REPRODUCTIVE ORGANS: No pathologic process. MUSCULOSKELETAL: No acute or suspicious osseous abnormality. ADDITIONAL FINDINGS: None. IMPRESSION: No acute or significant abnormalities seen in the abdomen or pelvis. Normal appendix.
--- NOTE | 2024-07-20 18:44 | ER ---
Nurse's Notes [facility] Name: Elizabeth Gillis Age: 23 yrs Sex: Female : 2000 Arrival Date: 07/20/2024 Time: 14:21 Bed 13 Private MD: Diagnosis: Vomiting, unspecified;Dehydration Presentation: 07/20 14:35 Chief complaint: Patient states: N/V x 2 days, has hx of IBS, passed out for a few ko1 minutes. Coronavirus screen: At this time, the client does not indicate any symptoms associated with coronavirus-19. Ebola Screen: No symptoms or risks identified at this time. Initial Sepsis Screen: Does the patient meet any 2 criteria? No. Patient's initial sepsis screen is negative. Does the patient have a suspected source of infection? No. Patient's initial sepsis screen is negative. Risk Assessment: Do you want to hurt yourself or someone else? Patient reports no desire to harm self or others. Onset of symptoms was July 20, 2024. 14:35 Method Of Arrival: Wheelchair ko1 14:35 Acuity: LEX 3 ko1 Triage Assessment: 14:37 General: Appears ill, Behavior is calm, cooperative, appropriate for age. Pain: ko1 Complains of pain in abdomen. 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 - Infectious Disease History:: Denies. - Social history:: Smoking status: Patient denies any tobacco usage or history of. - Family history:: not pertinent. - Hospitalizations: : No recent hospitalization is reported. Screenin:37 [facility] ED Fall Risk Assessment (Adult) History of falling in the last 3 months, bp including since admission No falls in past 3 months (0 pts) Confusion or Disorientation No (0 pts) Intoxicated or Sedated No (0 pts) Impaired Gait No (0 pts) Mobility Assist Device Used No (0 pt) Altered Elimination No (0 pt) Score/Fall Risk Level 0 - 2 = Low Risk Oriented to surroundings. Abuse screen: Denies threats or abuse. Denies injuries from another. Nutritional screening: No deficits noted. Tuberculosis screening: No symptoms or risk factors identified. Assessment: 14:37 General: Appears in no apparent distress. uncomfortable, Behavior is calm, cooperative, bp appropriate for age. Pain: Complains of pain in abdomen. 17:09 Reassessment: Patient appears in no apparent distress at this time. Patient is alert, bp oriented x 3, equal unlabored respirations, skin warm/dry/pink. Patient states symptoms have improved. 18:24 Reassessment: Patient appears in no apparent distress at this time. Patient is alert, bp oriented x 3, equal unlabored respirations, skin warm/dry/pink. Vital Signs: 14:35 BP 156 / 102; Pulse 63; Resp 15; Temp 97; Pulse Ox 100% ; ko1 16:18 BP 158 / 97; Pulse 100; Resp 16; Pulse Ox 99% ; bp 17:09 BP 102 / 56; Pulse 81; Resp 15; Pulse Ox 100% ; bp 18:24 BP 141 / 55; Pulse 68; Resp 16; Pulse Ox 99% ; bp ED Course: 14:23 Patient arrived in ED. ra3 14:37 Triage completed. ko1 14:37 Arm band placed on right wrist. Patient placed in an exam room, on a stretcher, on ko1 manager monitoring, on pulse oximetry, Patient notified of wait time. 14:38 Saeid Chavez MD is Attending Physician. rn 15:43 Jay Suarez, TRISTAN is Primary Nurse. bp 16:02 Initial lab(s) drawn, by wa, sent to lab. Urine collected: clean catch specimen, clear. bp Inserted saline lock: 22 gauge in left forearm, using aseptic technique. Blood collected. Flushed with 10 mL NS. 17:33 CT Abd/Pelvis - IV Contrast Only In Process Unspecified. EDMS 18:57 No provider procedures requiring assistance completed. IV discontinued, intact, bp bleeding controlled, No redness/swelling at site. Pressure dressing applied. Administered Medications: 14:44 CANCELLED (Patient Refused; states doesn't work): ondansetron 4 mg IVP once; over 2 rn minutes 16:17 Drug: NS 0.9% IV 1000 ml IV at 1 bolus Per protocol; to be given as a bolus over 60 bp minutes Route: IV; Rate: 1 bolus; Site: left forearm; 18:58 Follow up: IV Status: Completed infusion bp 16:17 Drug: Promethazine IVP 12.5 mg IVP once Route: IVP; Site: left forearm; bp 16:18 Follow up: Response: No adverse reaction bp 16:17 Drug: morphine IVP or IV 4 mg IVP once over 4 mins Route: IVP; Infused Over: 4 mins; bp Site: left forearm; 16:17 Follow up: Response: No adverse reaction bp Medication: 18:58 VIS not applicable for this client. bp Outcome: 18:44 Discharge ordered by . rn 18:57 Discharged to home ambulatory, with family, bp 18:57 Condition: stable 18:57 Discharge instructions given to patient, Instructed on discharge instructions, follow up and referral plans. medication usage, Demonstrated understanding of instructions, follow-up care, medications, Prescriptions given X 1, 18:58 Patient left the ED. bp Signatures: Dispatcher [employer] EDMS Saeid Chavez MD MD rn Peltier, Brian RN RN bp Katie Ramirez RN RN ko1 Sonal Cruz ra3
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
[2024-07-20 19:02] VITALS: TEMP 97
[2024-07-20 19:06] VITALS: BP 141/55; O2SAT 99
== END 2024-07-20 18:58 | disposition home or self-care (01) ==
LOC: ER 14:21
DX: E86.0 Dehydration (principal); R55 Syncope and collapse; R53.1 Weakness
CPT/HCPCS: 96361; 85025; 81001; 36415; 81025; 83690; 80053; 74177; 96375; 96374; 99284; Q9967; J2550; J7030

== ENCOUNTER 2024-07-22 12:04 | Emergency (ER) | payer OTHER ==
[2024-07-22] MEDS ORDERED: MORPHINE 2 MG/ML SYR ONE (14:12)
[2024-07-22] MEDS ORDERED: PROMETHAZINE INJ 25 MG/ML AMP ONE (14:12)
--- NOTE | 2024-07-22 14:12 | ER ---
Nurse's Notes [facility] Name: Elizabeth Gillis Age: 23 yrs Sex: Female : 2000 Arrival Date: 07/22/2024 Time: 12:04 Bed DX1 Private MD: Diagnosis: Nausea with vomiting, unspecified Presentation: 07/22 12:17 Chief complaint: Patient states: N/V, abdominal pain and syncopal episode this morning, ph seen yesterday for same symptoms, d/c home w/ promethazine but "can't keep it down.". Coronavirus screen: Vaccine status: Patient reports being unvaccinated. Ebola Screen: No symptoms or risks identified at this time. Initial Sepsis Screen: Does the patient meet any 2 criteria? No. Patient's initial sepsis screen is negative. Does the patient have a suspected source of infection? No. Patient's initial sepsis screen is negative. Risk Assessment: Do you want to hurt yourself or someone else? Patient reports no desire to harm self or others. Onset of symptoms was July 22, 2024. 12:17 Method Of Arrival: Ambulatory ph 12:17 Acuity: LEX 3 ph Triage Assessment: 12:19 General: Appears in no apparent distress. Behavior is calm, cooperative. Pain: ph Complains of pain in abdomen. Neuro: Reports a syncopal episode. GI: Reports lower abdominal pain, upper abdominal pain, nausea, vomiting. Historical: - Allergies: 12:19 Amoxicillin; ph - PMHx: 12:19 Cyst of ovary; Irritable bowel syndrome; ph - Immunization history:: Adult Immunizations unknown. - Infectious Disease History:: Denies. - Social history:: Smoking status: Patient reports the use of cigarette tobacco products, denies chronic smoking, but will smoke occasionally. Screenin:06 [facility] ED Fall Risk Assessment (Adult) History of falling in the last 3 months, ap3 including since admission Yes- single mechanical fall (1 pt) Confusion or Disorientation No (0 pts) Intoxicated or Sedated No (0 pts) Impaired Gait No (0 pts) Mobility Assist Device Used No (0 pt) Altered Elimination No (0 pt) Score/Fall Risk Level 0 - 2 = Low Risk Oriented to surroundings, Maintained a safe environment, Educated pt \\T\\ family on fall prevention, incl call for assistance when getting out of bed, Assessed \\T\\ reinforced patient's understanding of fall precautions, Hourly rounding (assess needs \\T\\ fall precautionary measures) done, Used ambulatory aids as needed (educated on \\T\\ assisted with), Used gait belt as appropriate. Abuse screen: Denies threats or abuse. Nutritional screening: No deficits noted. Tuberculosis screening: No symptoms or risk factors identified. Assessment: 15:07 GI: Abdomen is non-distended. ap3 Vital Signs: 12:17 BP 149 / 102; Pulse 120; Resp 18; Temp 97.9; Pulse Ox 100% on R/A; Weight 65.77 kg; ph Height 5 ft. 6 in. ; 16:30 BP 132 / 84; Pulse 84; dr5 12:17 Body Mass Index 23.40 (65.77 kg, 167.64 cm) ph ED Course: 12:07 Patient arrived in ED. sj2 12:14 [facility] Alarcon [facility]C [facility]5 12:14 Madhu Lucas MD is Attending Physician. dr5 12:19 Triage completed. ph 12:19 Arm band placed on Patient placed in waiting room, Patient notified of wait time. ph 13:14 Missed attempt(s): 22 gauge in left antecubital area. ap3 13:39 Initial lab(s) drawn, by me, sent to lab. Inserted saline lock: 24 gauge in left hand, em1 using aseptic technique. Blood collected. Flushed with 10 mL NS. 15:07 Patient has correct armband on for positive identification. Provided Education on: ap3 discharge instructions . 15:07 No provider procedures requiring assistance completed. IV discontinued, intact, ap3 bleeding controlled, No redness/swelling at site. Pressure dressing applied. Administered Medications: 14:20 Drug: Promethazine IVP 12.5 mg IVP once Route: IVP; Site: left hand; ap3 15:08 Follow up: Response: No adverse reaction ap3 14:21 Not Given (Physician Discretion): ondansetron 4 mg IVP once; over 2 minutes ap3 14:21 Not Given (Physician Discretion): ns 0.9% 1000 ml IV at 1 bolus Per protocol; to be ap3 given as a bolus over 60 minutes 14:21 Drug: morphine IVP or IV 2 mg IVP once over 4 mins Route: IVP; Infused Over: 4 mins; ap3 Site: left hand; 15:08 Follow up: Response: No adverse reaction ap3 Medication: 15:08 VIS not applicable for this client. ap3 Outcome: 14:12 Discharge ordered by MD. sheffield 15:07 Discharged to chair while patient waits for ride ap3 15:07 Condition: good 15:07 Discharge instructions given to patient, Instructed on discharge instructions, follow up and referral plans. medication usage, Demonstrated understanding of instructions, follow-up care, medications, Prescriptions given X 2, 15:08 Patient left the ED. ap3 Signatures: Raheem Jaquez em1 Janet Mcknight, RN RN ph Felicity Henry, RN RN ap3 Aurea Keller 2 Chucho Alarcon, CLINICAL COURIER-C CLINICAL COURIER-Cdr5 Corrections: (The following items were deleted from the chart) 14: 13:38 CBC+H.LAB.BRZ drawn and sent. em1 EDMS 14: 13:38 COMPREHENSIVE METABOLIC PANEL+C.LAB.BRZ drawn and sent. em1 EDMS 14: 13:38 LIPASE+C.LAB.BRZ drawn and sent. em1 EDMS
--- NOTE | 2024-07-22 14:12 | EDPHYS ---
Physician Documentation [facility] Name: Elizabeth Gillis Age: 23 yrs Sex: Female : 2000 Arrival Date: 07/22/2024 Time: 12:04 Bed DX1 Private MD: ED Physician Madhu Lucas HPI: 07/22 16:30 This 23 yrs old Black Female presents to ER via Ambulatory with complaints of dr5 Nausea/Vomiting, Syncope. 16:30 The patient presents to the emergency department with nausea, vomiting. Patient is a dr5 23-year-old female with history of IBS coming in with nausea and vomiting that started 2 days ago. Patient reported that she has been home vomiting constantly with no relief of medications that were given to her. Patient reports that she had a CT scan completed with no acute abnormalities. Patient also reports that she has not followed up with primary care doctor, made an appointment, call to schedule appointment, or has been followed by GI.. Historical: - Allergies: 12:19 Amoxicillin; ph - PMHx: 12:19 Cyst of ovary; Irritable bowel syndrome; ph - Immunization history:: Adult Immunizations unknown. - Infectious Disease History:: Denies. - Social history:: Smoking status: Patient reports the use of cigarette tobacco products, denies chronic smoking, but will smoke occasionally. ROS: 16:30 Constitutional: as per hpi dr5 Exam: 16:30 Constitutional: This is a well developed, well nourished patient who is awake, alert, dr5 and in no acute distress. Head/Face: Normocephalic, atraumatic. Eyes: Pupils equal round and reactive to light, extra-ocular motions intact. Lids and lashes normal. Conjunctiva and sclera are non-icteric and not injected. Cornea within normal limits. Periorbital areas with no swelling, redness, or edema. ENT: Nares patent. No nasal discharge, no septal abnormalities noted. Tympanic membranes are normal and external auditory canals are clear. Oropharynx with no redness, swelling, or masses, exudates, or evidence of obstruction, uvula midline. Mucous membranes moist. Neck: Trachea midline, no thyromegaly or masses palpated, and no cervical lymphadenopathy. Supple, full range of motion without nuchal rigidity, or vertebral point tenderness. No Meningismus. Chest/axilla: Normal chest wall appearance and motion. Nontender with no deformity. No lesions are appreciated. Cardiovascular: Regular rate and rhythm with a normal S1 and S2. Normal PMI, no JVD. No pulse deficits. 16:30 Back: No spinal tenderness. No costovertebral tenderness. Full range of motion. Skin: Warm, dry with normal turgor. Normal color with no rashes, no lesions, and no evidence of cellulitis. MS/ Extremity: Pulses equal, no cyanosis. Neurovascular intact. Full, normal range of motion. Neuro: Awake and alert, GCS 15, oriented to person, place, time, and situation. Cranial nerves II-XII grossly intact. Motor strength 5/5 in all extremities. Sensory grossly intact. Cerebellar exam normal. Normal gait. 16:30 Abdomen/GI: Exam negative for acute changes, Inspection: abdomen appears normal, Bowel sounds: normal, Palpation: abdomen is soft and non-tender, in all quadrants, Vital Signs: 12:17 BP 149 / 102; Pulse 120; Resp 18; Temp 97.9; Pulse Ox 100% on R/A; Weight 65.77 kg; ph Height 5 ft. 6 in. ; 16:30 BP 132 / 84; Pulse 84; dr5 12:17 Body Mass Index 23.40 (65.77 kg, 167.64 cm) ph MDM: 12:15 Medical Screening Exam initiated dr5 16:30 Differential diagnosis: Nonspecific abd pain, gastritis, IBS. Data reviewed: vital dr5 signs, nurses notes. I considered the following discharge prescriptions or medication management in the emergency department Medications were administered in the Emergency Department. See MAR. Care significantly affected by the following chronic conditions: IBS. Care significantly affected by the following Social Determinants of Health: Poor access to healthcare and/or lack of insurance, Poor access to transportation, Problems related to employment. Counseling: I had a detailed discussion with the patient and/or guardian regarding the historical points, exam findings, and any diagnostic results supporting the discharge/admit diagnosis, the presence of at least one elevated blood pressure reading (>120/80) during this emergency department visit, the need for outpatient follow up, for definitive care, a family practitioner, a manager of international, to return to the emergency department if symptoms worsen or persist or if there are any questions or concerns that arise at home. Medication response: morphine relieved the patient's pain. Symptoms have resolved, Phenergan relieved the patient's nausea. Response to treatment: the patient's symptoms have resolved after treatment. ED course: During initial assessment, patient reports that she only responds to Phenergan IV and morphine IV. Patient states that she has been taking medications at home with no relief. Patient has been in the ER for approximately 4-1/2 hours sleeping in a chair within my eyesight and has not vomited once. Patient has been sleeping with cover over head and chair. Patient was upset that I only gave 2 mg of morphine IV and requested more. Patient also was requesting to be admitted to the hospital for observation given patient's constant vomiting. Vital signs are stable. I discussed with patient the caustic effect of Phenergan IV given patient has become hard to start an IV on. Patient had ultrasound IV and 24-gauge was placed in her hand. Discussed long-term effects of these drugs on veins. Patient is aware and still requesting medications. All questions answered.. 07/22 12:15 Order name: IV Saline Lock; Complete Time: 13:38 dr5 07/22 12:15 Order name: Labs collected and sent; Complete Time: 13:38 dr5 Administered Medications: 14:20 Drug: Promethazine IVP 12.5 mg IVP once Route: IVP; Site: left hand; ap3 15:08 Follow up: Response: No adverse reaction ap3 14:21 Not Given (Physician Discretion): ondansetron 4 mg IVP once; over 2 minutes ap3 14:21 Not Given (Physician Discretion): ns 0.9% 1000 ml IV at 1 bolus Per protocol; to be ap3 given as a bolus over 60 minutes 14:21 Drug: morphine IVP or IV 2 mg IVP once over 4 mins Route: IVP; Infused Over: 4 mins; ap3 Site: left hand; 15:08 Follow up: Response: No adverse reaction ap3 Disposition Summary: 07/22/24 14:12 Discharge Ordered Notes: Location: Home dr5 Condition: Stable dr5 Diagnosis - Nausea with vomiting, unspecified dr5 Followup: dr5 - With: Emergency Department - When: As needed - Reason: Worsening of condition Followup: dr5 - With: Private Physician - When: 1 - 2 days - Reason: Recheck today's complaints, Continuance of care, Re-evaluation by your physician Discharge Instructions: - Discharge Summary Sheet dr5 - Nausea and Vomiting, Adult dr5 Forms: - Medication Reconciliation Form dr5 - Patient Portal Instructions dr5 - Leadership Thank You Letter dr5 Prescriptions: - Reglan 10 mg Oral Tablet - take 1 tablet ORAL route every 6 hours take 30 minutes before meals and at dr5 bedtime; 20 tablet; Refills: 0, Product Selection Permitted - dicyclomine 10 mg Oral capsule - take 1 capsule ORAL route 3 times per day As needed; 30 capsule; Refills: 0, dr5 Product Selection Permitted Addendum: 07/25/2024 07:33 Co-signature as Attending Physician, Madhu Lucas MD I agree with the assessment and c menendez plan of care. Signatures: Dispatcher [employer] EDMS Madhu Lucas MD MD cha Hall, Patricia, RN RN ph Felicity Henry RN RN ap3 Day Miller Dustin, SCRAP DEALER-C SCRAP DEALER-Cdr5 Corrections: (The following items were deleted from the chart) 07/22 14:25 13:56 Labs - recollect needed ordered. eb ko1 14:26 12:15 CBC+H.LAB.BRZ ordered. EDMS EDMS 14:26 12:15 COMPREHENSIVE METABOLIC PANEL+C.LAB.BRZ ordered. EDMS EDMS 14:26 12:15 LIPASE+C.LAB.BRZ ordered. EDMS EDMS 14:27 12:15 Urinalysis+U.LAB.BRZ ordered. EDMS EDMS 16:35 16:30 ED course: During initial assessment, patient reports that she only responds to dr5 Phenergan IV and morphine IV. Patient states that she has been taking medications at home with no relief. Patient has been in the ER for approximately. dr5
[2024-07-22 15:23] VITALS: BP 149/102; TEMP 97.9; O2SAT 100
== END 2024-07-22 15:08 | disposition home or self-care (01) ==
LOC: ER 12:04
DX: R11.2 Nausea with vomiting, unspecified (principal); K58.9 Irritable bowel syndrome, unspecified; F17.210 Nicotine dependence, cigarettes, uncomplicated; Z88.0 Allergy status to penicillin
CPT/HCPCS: 96375; 96374; 99284; J2550; J2270